=== PATIENT | female | born 1975 | race Caucasian/White ===

== ENCOUNTER 2017-05-31 14:47 | Inpatient (IN) | payer OTHER ==
[~2017-05-31] VITALS: Ht 160 cm; Wt 46.0 kg
[~2017-05-31 14:47] MED LIST: BUTO10SO; OXYC-360 PO; SUMA50
[2017-05-31 14:56] VITALS: BP 148/87; PULSE 112; RESP 20
[2017-05-31] MEDS ORDERED: SODIUM CHLOR 0.9% 1000 ML INJ 1,000 ML IV ONE (14:56)
[2017-05-31 15:11] LABS: AUTOMATED NEUTROPHIL # 5.5 TH/MM3 (1.8-7.7); BASOPHIL % 0.4 % (0.0-2.0); EOSINOPHIL # 0.2 TH/MM3 (0-0.4); HEMATOCRIT 38.7 % (35.0-46.0); HEMO FLAGS DIFF FINAL; LYMPH % 20.1 % (9.0-44.0); LYMPHOCYTE # 1.6 TH/MM3 (1.0-4.8); MEAN CELL VOLUME 85.8 FL (80.0-100.0); MEAN CORPUSCULAR HEMOGLOBIN 28.4 PG (27.0-34.0); MEAN CORPUSCULAR HGB CONC 33.2 % (32.0-36.0); MONO % 8.9 % (0.0-8.0); NEUT % 68.6 % (16.0-70.0); PLATELET COUNT 252 TH/MM3 (150-450); RED BLOOD COUNT 4.51 MIL/MM3 (4.00-5.30); RED CELL DISTRIBUTION WIDTH 13.4 % (11.6-17.2)
--- NOTE | 2017-05-31 15:12 | RADRPT ---
EXAM DATE/TIME: 05/31/2017 14:57 [facility] COMPARISON: No previous studies available for comparison. INDIC ATIONS : A RADIATION DOSE: 60.34 CTDIvol (mGy) This report was called by Dr. Cherry to Dr. Hernandez at 1509 MEDICAL HISTORY : Unable to obtain. SURGICAL HISTORY : Unable to obtain. ENCOUNTER: Initial ACUITY: 1 day PAIN SCALE: 4/10 LOCATION: cranial TECHNIQUE: Multiple contiguous axial images were obtained of the head. Using automated exposure control and adj ustment of the mA and/or kV according to patient size, radiation dose was kept as low as reasonably a chievable to obtain optimal diagnostic quality images. DICOM format image data is available electro nically for review and comparison. FINDINGS: CEREBRUM: The ventricles are normal for age. No evidence of midline shift, mass lesion, hemorrhage or acute in farction. No extra-axial fluid collections are seen. POSTERIOR FOSSA: The cerebellum and brainstem are intact. The 4th ventricle is midline. The cerebellopontine angle i s unremarkable. EXTRACRANIAL: The visualized portion of the orbits is intact. SKULL: The calvaria is intact. No evidence of skull fracture. CONCLUSION: Negative exam. Leroy Cherry MD on May 31, 2017 at 15:06 Board Certified Radiologist. This report was verified electronically.
[2017-05-31 15:22] LABS: CHLORIDE 102 MEQ/L (98-107); POTASSIUM 3.5 MEQ/L (3.5-5.1); SODIUM (NA) 137 MEQ/L (136-145)
[2017-05-31 15:25] LABS: ANION GAP 9 MEQ/L (5-15); BICARBONATE 26.3 MEQ/L (21.0-32.0); BLOOD UREA NITROGEN 13 MG/DL (7-18)
[2017-05-31 15:27] LABS: APTT (PATIENT) 25.7 SEC (24.3-30.1); PROTHROMBIN TIME - PATIENT 11.3 SEC (9.8-11.6)
[2017-05-31 15:28] LABS: GLOMERULAR FILTRATION RATE 83 ML/MIN (>89)
[2017-05-31 15:30] VITALS: BP 141/77; PULSE 89; RESP 20; O2SAT 98
[2017-05-31 15:33] LABS: BETA HCG QUANT LESS THAN 1 MIU/ML (0-5)
[2017-05-31] MEDS ORDERED: IOHEXOL 350 MG/ML 10 ML VIAL (for RAD DIAG) IVCONTRAST ONE (15:38)
--- NOTE | 2017-05-31 15:45 | PD ---
HPI Chief Complaint: Stroke Alert Time Seen by Provider: 14:59 Travel History International Travel<30 days: No Contact w/Intl Traveler<30days: No Traveled to known affect area: No History of Present Illness HPI This is a 42-year-old female who presents to the emergency Department with strokelike symptoms. History was obtained primarily from the patient's and coworkers. The patient reportedly at noon had onset of some flashes in her vision and then started to have some numbness in her right arm. She mentioned it to her coworkers became continue to work. At 2 PM she started to have difficulty with her speech so the office called her and she was brought to the emergency department. Reportedly this happen once 10 years ago. Patient presented to an outside hospital and was told that she had a TIA. She followed up with the subspecialist to suspected her symptoms were related to complex migraine. She was diagnosed with factor V Leiden at that time and started on a blood thinner which she no longer currently takes. PFSH Past Medical History Arthritis: No Blood Disorders: Yes (FACTOR 5 DEFICIENCY) Anxiety: Yes Depression: No Heart Rhythm Problems: Yes (SVT) Cancer: No Cardiovascular Problems: Yes (FACTOR V LEIDEN) High Cholesterol: Yes Chest Pain: Yes Congestive Heart Failure: No Cerebrovascular Accident: Yes Endocrine: No Genitourinary: No Headaches: Yes Hypertension: Yes Immune Disorder: No Musculoskeletal: No Neurologic: Yes Psychiatric: Yes Reproductive: No Respiratory: No Migraines: Yes Myocardial Infarction: No Sickle Cell Disease: No ?: Not : 2 Para: 2 Past Surgical History Abdominal Surgery: No AICD: No Arteriovenous Shunt: No Body Medical Devices: POSITIVE FACTOR 5 Cardiac Surgery: No Ear Surgery: No Endocrine Surgery: No Eye Surgery: No Genitourinary Surgery: No Gynecologic Surgery: Yes (OVARIAN CYST) Insulin Pump: No Joint Replacement: No Oral Surgery: No Pacemaker: No Thoracic Surgery: No Other Surgery: Yes (INGUINAL HERNIA REPAIR) Social History Alcohol Use: Yes (occ) Tobacco Use: No Substance Use: No Allergies-Medications (Allergen,Severity, Reaction): Coded Allergies: No Known Allergies (Verified , 05/31/17) Reported Meds & Prescriptions Reported Meds & Active Scripts Active Review of Systems ROS Limitations: Speech Impaired Physical Exam Narrative GENERAL:Well appearing, no acute distress SKIN: Focused skin assessment warm and dry. HEAD: Atraumatic. Normocephalic. EYES: Pupils equal and round. No injection or drainage. ENT: Moist mucous membranes NECK: Trachea midline. CARDIOVASCULAR: Regular rate and rhythm. No murmur appreciated. RESPIRATORY: Clear to auscultation. Breath sounds equal bilaterally. GASTROINTESTINAL: Abdomen soft, non-tender, nondistended. MUSCULOSKELETAL: No obvious deformities. NEUROLOGICAL: Awake and alert. No obvious cranial nerve deficits. Severe expressive aphasia. Right upper extremity ataxia. Unable to articulate visual almodovar well. NIH stroke scale 5. PSYCHIATRIC: Anxious, tearful Data Data Last Documented VS Vital Signs Date Time Temp Pulse Resp B/P (MAP) Pulse Ox O2 Delivery O2 Flow Rate FiO2 05/31/17 15:44 Room Air 05/31/17 15:42 98 05/31/17 15:30 89 20 Orders Orders Cath For Specimen (05/31/17 14:56) Neuro Checks Q2HX12,Q4H (05/31/17 14:56) Nursing Bedside Swallow Assess .ONCE (05/31/17 14:56) Activity Bed Rest (05/31/17 14:56) Diet Npo (05/31/17 Dinner) Prothrombin Time / Inr (Pt) (05/31/17 14:56) Act Partial Throm Time (Ptt) (05/31/17 14:56) Complete Blood Count With Diff (05/31/17 14:56) Basic Metabolic Panel (Bmp) (05/31/17 14:56) Fibrinogen (05/31/17 14:56) Creatine Kinase (Cpk) (05/31/17 14:56) Troponin I (05/31/17 14:56) Ua Includes Microscopic (05/31/17 14:56) Drug Screen, Random Urine (05/31/17 14:56) Type And Screen (05/31/17 14:56) Ct Brain W/O Iv Contrast(Rout) (05/31/17 ) Electrocardiogram (05/31/17 ) Beta Hcg (Quant/Titer) (05/31/17 14:56) Consult Neurology (05/31/17 14:56) Sodium Chlor 0.9% 1000 Ml Inj (Ns 1000 M (05/31/17 14:56) Blood Glucose (05/31/17 14:56) Ecg Monitoring (05/31/17 14:56) Iv Access Insert/Monitor (05/31/17 14:56) NPO (05/31/17 14:56) Oximetry (05/31/17 14:56) Oxygen Administration (05/31/17 14:56) Resp Oxygen John C Titrat 1-4 L (05/31/17 14:56) (Hub Use Only)Inp Phy Cons/Ref (05/31/17 ) Cta Brain W Iv Contrast W 3d (05/31/17 ) Cta Neck W Iv Contrast W 3d (05/31/17 ) Iohexol 350 Inj (Omnipaque 350 Inj) (05/31/17 15:38) Heparin Infusion LUZ.Q1H (05/31/17 16:18) Heparin-D5w 25,000 U/250 Ml (Heparin-D5w (05/31/17 16:30) Act Partial Throm Time (Ptt) (05/31/17 16:18) Cbc No Diff, Includes Plts (05/31/17 16:18) Cbc No Diff, Includes Plts (06/03/17 06:00) Act Partial Throm Time (Ptt) (05/31/17 23:18) Occult Blood (Hemoccult) Stool (05/31/17 16:18) Aspirin Chew (Aspirin Chew) (05/31/17 16:30) Eeg Study (05/31/17 ) Mri Brain W&W/O Contrast (05/31/17 ) Aspirin (Aspirin) (05/31/17 16:21) Labs Laboratory Tests Test 05/31/17 15:00 White Blood Count 8.0 TH/MM3 Red Blood Count 4.51 MIL/MM3 Hemoglobin 12.8 GM/DL Hematocrit 38.7 % Mean Corpuscular Volume 85.8 FL Mean Corpuscular Hemoglobin 28.4 PG Mean Corpuscular Hemoglobin Concent 33.2 % Red Cell Distribution Width 13.4 % Platelet Count 252 TH/MM3 Mean Platelet Volume 7.3 FL Neutrophils (%) (Auto) 68.6 % Lymphocytes (%) (Auto) 20.1 % Monocytes (%) (Auto) 8.9 % Eosinophils (%) (Auto) 2.0 % Basophils (%) (Auto) 0.4 % Neutrophils # (Auto) 5.5 TH/MM3 Lymphocytes # (Auto) 1.6 TH/MM3 Monocytes # (Auto) 0.7 TH/MM3 Eosinophils # (Auto) 0.2 TH/MM3 Basophils # (Auto) 0.0 TH/MM3 CBC Comment DIFF FINAL Differential Comment Prothrombin Time 11.3 SEC Prothromb Time International Ratio 1.0 RATIO Activated Partial Thromboplast Time 25.7 SEC Fibrinogen 200 mg/dL Blood Urea Nitrogen 13 MG/DL Creatinine 0.77 MG/DL Random Glucose 122 MG/DL Calcium Level 8.9 MG/DL Sodium Level 137 MEQ/L Potassium Level 3.5 MEQ/L Chloride Level 102 MEQ/L Carbon Dioxide Level 26.3 MEQ/L Anion Gap 9 MEQ/L Estimat Glomerular Filtration Rate 83 ML/MIN Total Creatine Kinase 64 U/L Troponin I LESS THAN 0.02 NG/ML Human Chorionic Gonadotropin, Quant LESS THAN 1 MIU/ML MDM Medical Screen Exam Complete: Yes Emergency Medical Condition: Yes Differential Diagnosis Hemorrhagic stroke, ischemic stroke, complex migraine, TIA, seizure, mass Narrative Course This is a 42-year-old female who presents to the emergency department with expressive aphasia. She did have a prodrome of flashes in her vision and some numbness in her arm. She was last normal at noon. Stroke alert was activated when the patient arrived. Patient was transported to CT. Patient was determined to be a TPA candidate. I had a long conversation with the patient and her . We discussed the risks versus benefits of TPA. Given the patient's history of having had these symptoms in the past and they resolve spontaneously on their own and the risk of intracranial hemorrhage the family decided against TPA. We obtained a CTA and Dr. Eric came to evaluate the patient at the bedside. Critical Care Narrative Aggregate critical care time was 40 minutes. Time to perform other separately billable procedures was not included in the critical care time. My time did not include minutes spent treating any other patients simultaneously or on activities that did not directly contribute to the patient's treatment. The services I provided to this patient were to treat and/or prevent clinically significant deterioration that could result in: disability, I provided critical care services requiring my management, as noted below: Chart data review, documentation time, medication orders and management, vital sign assessments/reviewing monitor data, ordering and reviewing lab tests, ordering and interpreting/reviewing x-rays and diagnostic studies, care of the patient and discussion of the patient with the admitting physicians. Stroke Alert NIHSS NIH Stroke Scale Result: 5 NIHSS Time Completed: 14:56 Thrombolytic Contraindications Contraindications: Refusal of Treatment Physician Communication Physician Communication Dr. Eric Diagnosis Diagnosis: Primary Impression: Aphasia Admitting Physician Requests: Admit Marie Hernandez MD May 31, 2017 15:45
[2017-05-31 15:56] LABS: CREATINE KINASE 64 U/L (26-192)
--- NOTE | 2017-05-31 15:58 | RADRPT ---
EXAM DATE/TIME: 05/31/2017 15:18 [facility] COMPARISON: CT BRAIN W/O CONTRAST, May 31, 2017, 14:57. INDICATIONS : Stroke alert. Dysphasia. IV CONTRAST: 75 cc Omnipaque 350 (iohexol) IV ; Cumulative dose for multiple exams. RADIATION DOSE: 42.28 CTDIvol (mGy) ; Combined studies MEDICAL HISTORY : Unable to obtain. SURGICAL HISTORY : Unable to obtain. ENCOUNTER: Initial ACUITY: 1 day PAIN SCALE: 4/10 LOCATION: cranial TECHNIQUE: Volumetric scanning was performed using a multi-row detector CT scanner. The data was post processed with a variety of visualization algorithms including full volume maximum intensity projection, multi -planar sliding thin slab reformation, curved planar reformation, and surface rendering techniques. Using automated exposure control and adjustment of the mA and/or kV according to patient size, radiat ion dose was kept as low as reasonably achievable to obtain optimal diagnostic quality images. DICO M format image data is available electronically for review and comparison. FINDINGS: There is excellent visualization of the major intracranial arteries out to the second-order branch ve ssels. There is no evidence for aneurysm, vessel truncation or stenosis, and no evidence for vascula r malformation. CONCLUSION: 1. Negative examination. Samuel Lovell MD on May 31, 2017 at 15:53 Board Certified Radiologist. This report was verified electronically.
--- NOTE | 2017-05-31 16:08 | RADRPT ---
EXAM DATE/TIME: 05/31/2017 15:18 [facility] COMPARISON: No previous studies available for comparison. INDICATIONS : Stroke alert. Dysphasia. IV CONTRAST: 75 cc Omnipaque 350 (iohexol) IV ; Cumulative dose for multiple exams. RADIATION DOSE: 42.28 CTDIvol (mGy) MEDICAL HISTORY : Unable to obtain. SURGICAL HISTORY : Unable to obtain. ENCOUNTER: Initial ACUITY: 1 day PAIN SCALE: 0/10 LOCATION: neck Elevated flow velocities and ICA/CCA ratios have been found to correlate with increased degrees of vessel stenosis, calculated as percentage of diameter relative to a normal segment of distal ICA/CCA. TECHNIQUE: Volumetric scanning was performed using a multirow detector CT scanner. The data was post processed with a variety of visualization algorithms including full-volume maximum intensity projection, multip lanar sliding thin-slab reformation, curved-planar reformation, and surface-rendering techniques. Us ing automated exposure control and adjustment of the mA and/or kV according to patient size, radiatio n dose was kept as low as reasonably achievable to obtain optimal diagnostic quality images. DICOM f ormat image data is available electronically for review and comparison. FINDINGS: AORTIC ARCH: There is a three-vessel origin of the great vessels from the aorta. No evidence of ostial narrowing. RIGHT CAROTID: The common carotid artery is intact. The carotid bulb has a normal configuration without ulceration o r narrowing. The internal carotid artery lumen is smooth without stenosis. The external carotid malena ry is intact. LEFT CAROTID: The common carotid artery is intact. The carotid bulb has a normal configuration without ulceration or narrowing. There is an ulcerated plaque in the non-ostial proximal internal carotid artery with mu ral thrombus. The external carotid artery is intact. VERTEBRALS: The vertebral arteries have a symmetric diameter. No stenotic lesions are seen. CONCLUSION: 1. Ulcerated plaque in the nonostial proximal left internal carotid artery with mural thrombus. This could serve as a source of emboli to the left intracranial circulation. Degree of associated stenosis is less than 20% by NASCET criteria. 2. Arch and cervical vessels are otherwise patent Leroy Cherry MD on May 31, 2017 at 15:56 Board Certified Radiologist. This report was verified electronically.
[2017-05-31] MEDS ORDERED: ASPIRIN 325 MG TAB ONE (16:21)
[2017-05-31] MEDS ORDERED: HEPARIN-D5W 25,000 U/250 ML 250 ML IV PRN (16:30)
[2017-05-31] MEDS ORDERED: ASPIRIN 81 MG CHEW TAB CHEW ONE (16:30)
[2017-05-31] MEDS ORDERED: SODIUM CHLOR 0.9% 1000 ML INJ 1,000 ML IV SCH (16:34)
[2017-05-31] MEDS ORDERED: DEXTROSE 50% IN WATER 50 ML VIAL(D50) IV PUSH PRN (16:45)
[2017-05-31] MEDS ORDERED: GLUCAGON 1 MG/ML VIAL OTHER PRN (16:45)
[2017-05-31] MEDS ORDERED: SODIUM CHLORIDE 0.9% FLUSH 5 ML FLUSH IV FLUSH PRN (16:45)
[2017-05-31] MEDS ORDERED: ENALAPRILAT 1.25 MG/ML VIAL IV PRN (16:45)
[2017-05-31] MEDS: INSULIN ASPART SUPPLEMENTAL SCALE SQ SCH ×2 (17:00→21:00)
[2017-05-31 17:21] LABS: GLUCOSE,URINE NEG (NEG); KETONE, URINE NEG (NEG); NITRITE,URINE NEG (NEG)
[2017-05-31 17:28] LABS: BLOOD, URINE TRACE (NEG)
[2017-05-31 17:30] VITALS: BP 137/69; PULSE 87; RESP 1; O2SAT 98
[2017-05-31 17:32] LABS: URINE COLOR STRAW (YELLW/STRAW)
[2017-05-31 17:33] LABS: METHOD OF COLLECTION CLEAN CATCH; RBC, URINE 0-3 /hpf (0-3); SQUAMOUS EPITHELIAL CELL URINE 0-5 /hpf (0-5)
[2017-05-31] MEDS ORDERED: ONDANSETRON HCL 4 MG/2 ML VIAL IV PUSH ONE (18:15)
[2017-05-31] MEDS ORDERED: ACETAMINOPHEN 325 MG TAB PO ONE (18:15)
[2017-05-31] MEDS: SODIUM CHLOR 0.9% 1000 ML INJ 1,000 ML IV SCH (18:27)
--- NOTE | 2017-05-31 18:41 | MG ---
cc: TIFFANY FLOWERS MD Lab No: Date: 05/31/17 Age: Sex: F Race: REQUESTED PHYSICIAN Dr. Eric A stat EEG was obtained on this 42-year-old patient being evaluated for a stroke alert, and numbness and tingling right hand, expressive aphasia. MEDICATIONS Atenolol. Amitriptyline. This EEG shows consistent left temporal slower rhythms including attenuation, lack of alpha rhythms and theta. There is even some delta activity. There are some sharp waves. There is artifact and phase reversal on the left temporal. The right posterior rhythms are dominated by alpha activity. There is no significant change with photic stimulation, although some driving response is probably present, left more than right. INTERPRETATION Abnormal EEG because of frequent left temporal slowing with some associated sharp contoured waves and phase reversal. The findings suggest a focal abnormality, could be structural or postictal slowing. No ictal abnormality present. MD SANTOS Rader/ /6:18 PM /6:30 PM
[2017-05-31] MEDS ORDERED: ESCI10TA PO (18:59)
[2017-05-31] MEDS ORDERED: ATEN25TA PO ×2 (18:59)
[2017-05-31] MEDS ORDERED: AMIT10TA6 PO (18:59)
[2017-05-31] MEDS ORDERED: RELP40TA PO (18:59)
[2017-05-31] MEDS ORDERED: HYDROmorphone HCL PF 1 MG/ML VIAL IV PUSH ONE (19:15)
--- NOTE | 2017-05-31 19:47 | RADRPT ---
EXAM DATE/TIME: 05/31/2017 18:47 [facility] COMPARISON: CTA BRAIN W 3D RECON, May 31, 2017, 15:18. CT BRAIN W/O CONTRAST, May 31, 2017, 14:57. INDICATIONS : Stroke. CONTRAST: 10 cc Omniscan (gadodiamide) IV MEDICAL HISTORY : Factor V deficiency. SURGICAL HISTORY : Hernia repair. Lasik eye surgery. Facial. ENCOUNTER: Subsequent ACUITY: 1 day PAIN SCORE: 8/10 LOCATION: cranial TECHNIQUE: Multiplanar, multisequence MRI of the brain was performed both prior to and following the administrat ion of paramagnetic contrast. FINDINGS: CEREBRUM: The ventricles are normal for age. No evidence of midline shift, mass lesion, hemorrhage or acute in farction. No extraaxial fluid collections are seen. The pituitary gland and suprasellar cistern are normal in configuration. WHITE MATTER: No significant signal abnormalities are seen in the white matter. POSTERIOR FOSSA: The cerebellum and brainstem are intact. The 4th ventricle is midline. The cerebellopontine angle is unremarkable. The cerebellar tonsils are normal in position. DIFFUSION IMAGING: No focal areas of restricted diffusion are seen. No evidence of acute infarction. EXTRACRANIAL: The visualized portions of the orbits and paranasal sinuses are unremarkable. POST-CONTRAST: No abnormal areas of parenchymal or dural enhancement. No evidence of blood-brain barrier breakdown. CONCLUSION: Normal MRI of the brain. Toño Hand MD on May 31, 2017 at 19:43 Board Certified Radiologist. This report was verified electronically.
[2017-05-31 20:00] VITALS: BP 132/77; PULSE 78; RESP 16; O2SAT 98
[2017-05-31] MEDS ORDERED: GADODIAMIDE PF 287 MG/ML 10 ML VIAL (for RAD MRI) IVCONTRAST ONE (20:19)
--- NOTE | 2017-05-31 20:25 | RADRPT ---
EXAM DATE/TIME: 05/31/2017 18:47 COMPARISON: No previous studies available for comparison. INDICATIONS : CVA. CONTRAST: 10 cc Omniscan (gadodiamide) IV MEDICAL HISTORY : Factor V deficiency. SURGICAL HISTORY : Hernia repair. Lasik eye surgery. Facial. ENCOUNTER: Subsequent ACUITY: 1 day PAIN SCORE: 8/10 LOCATION: cranial FINDINGS: Dural sinuses and draining veins of the brain are normally developed. No evidence of thrombosis. CONCLUSION: MRV of the brain within normal limits. Toño Hand MD on May 31, 2017 at 20:21 Board Certified Radiologist. This report was verified electronically.
[2017-05-31] MEDS: levETIRAcetam 1000 MG INJ 100 ML IV SCH (21:00)
[2017-05-31] MEDS: SODIUM CHLORIDE 0.9% FLUSH 5 ML FLUSH IV FLUSH SCH (21:00)
[2017-05-31 21:05] VITALS: BP 132/78; PULSE 77; RESP 16; O2SAT 98
[2017-05-31 23:00] VITALS: BP 130/67; PULSE 90; RESP 16; TEMP 98.9; O2SAT 95
[2017-06-01] VITALS (7 sets, daily range): BP systolic 102–111; BP diastolic 56–66; PULSE 72–83; RESP 16–20; TEMP 97.9–98.3; O2SAT 94–100
[2017-06-01] MEDS: diphenhydrAMINE HCL 50 MG/ML VIAL IV PUSH PRN ×2 (03:14→23:23)
[2017-06-01] MEDS: PROCHLORPERAZINE INJ 10 MG/2 ML VIAL IV PUSH PRN ×2 (03:14→23:20)
[2017-06-01] MEDS: SODIUM CHLOR 0.9% 1000 ML INJ 1,000 ML IV SCH ×2 (04:07→20:26)
[2017-06-01 04:37] LABS: APTT (PATIENT) 43.7 SEC (24.3-30.1)
[2017-06-01 04:52] LABS: HDL CHOLESTEROL 73.1 MG/DL (40.0-60.0); LDL CHOLESTEROL 52 MG/DL (0-99)
[2017-06-01] MEDS ORDERED: MIDAZOLAM HCL 2 MG/2 ML VIAL IV ONE (07:53)
[2017-06-01] MEDS ORDERED: LIDOCAINE HCL 1% PF 5 ML AMPULE OTHER ONE (07:53)
[2017-06-01] MEDS ORDERED: ePHEDrine/NS 25 MG/5 ML SYR IV ONE (07:53)
[2017-06-01] MEDS ORDERED: PROPOFOL 200 MG/20 ML AMP IV ONE ×2 (07:53→08:51)
[2017-06-01] MEDS: INSULIN ASPART SUPPLEMENTAL SCALE SQ SCH ×4 (08:00→21:00)
[2017-06-01] MEDS: levETIRAcetam 1000 MG INJ 100 ML IV SCH (08:13)
--- NOTE | 2017-06-01 08:24 | HHI.PR ---
Subjective Remarks sr Objective Vital Signs Date Time Temp Pulse Resp B/P (MAP) Pulse Ox O2 Delivery O2 Flow Rate FiO2 06/01/17 04:30 97.9 79 16 107/57 (74) 95 05/31/17 23:00 98.9 90 16 130/67 (88) 95 05/31/17 21:05 77 16 132/78 (96) 98 Room Air 05/31/17 20:00 98 Room Air 05/31/17 20:00 78 16 132/77 (95) 98 Room Air 05/31/17 17:30 87 1 137/69 (91) 98 Room Air 05/31/17 15:44 Room Air 05/31/17 15:42 98 Room Air 05/31/17 15:30 89 20 141/77 (98) 98 Room Air 05/31/17 14:56 112 20 148/87 (107) I/O 05/31/17 05/31/17 05/31/17 06/01/17 06/01/17 06/01/17 07:00 15:00 23:00 07:00 15:00 23:00 Intake Total 850 ml Balance 850 ml Intake IV Total 850 ml Result Diagram: 05/31/17 1500 05/31/17 1500 Objective Remarks awake nl speech now nl calc name doing well back to nl Assessment and Plan Assessment and Plan imp eeg showed some sharply contoured left temp slowing no spikes mri neg cta negx2 had some cp wed will have cards see for guy and cp this was likely complicated migraine and eeg changes could be due to that vs cpsz? will add topamax and calan for migraines and eventually dc keppra oob the left ica very irregular will have vasc surgery weigh in ? thrombus? Neo Eric MD Jun 01, 2017 08:24
[2017-06-01] MEDS: levETIRAcetam 500 MG TAB PO SCH ×2 (08:49→23:21)
[2017-06-01] MEDS: SODIUM CHLORIDE 0.9% FLUSH 5 ML FLUSH IV FLUSH SCH ×2 (08:49→21:00)
--- NOTE | 2017-06-01 08:58 | HHI.HP ---
[facility] Betsy Carter MD Admission Diagnosis aphasia Diagnoses: Chief Complaint: right arm numbness, vision changes, sheech difficulty Travel History International Travel<30 Days: No Contact w/Intl Traveler <30 Da: No Traveled to Known Affected Are: No History of Present Illness 42-year-old female with PMH of TIA, migraine, Factor V Leyden deficiency, SVT, HLD, HTN, who presented to the emergency Department with strokelike symptoms. The patient reportedly at noon had onset of some flashes in her vision and then started to have some numbness in her right arm at noon yesterday. She mentioned it to her coworkers but continue to work. At 2 PM yesterday she started to have difficulty with her speech so the office called her and she was brought to the emergency department. Reportedly this happen once 10 years ago. Patient presented to an outside hospital and was told that she had a TIA. She followed up with the subspecialist to suspected her symptoms were related to complex migraine. She was diagnosed with factor V Leiden at that time and started on a blood thinner which she no longer currently takes. Stroke alert was activated when the patient arrived. Given patient's history of having had these symptoms in the past and they resolve spontaneously on their own and the risk of intracranial hemorrhage, the family decided against TPA. Neurology consulted. CTA/MRI neg for stroke, EEG poss seizure. Started meds for seizures and migraine. Review of Systems Except as stated in HPI: all other systems reviewed are Neg Past Family Social History Past Medical History TIA, migraine, Factor V Leyden deficiency, SVT, HLD, HTN, Past Surgical History Ovarian cyst Inguinal hernia repair Lasik surgery Reported Medications Reported Meds & Active Scripts Active Reported Relpax (Eletriptan) 40 Mg Tab 40 Mg PO ONCE PRN Escitalopram (Escitalopram Oxalate) 10 Mg Tab 10 Mg PO DAILY Amitriptyline (Amitriptyline HCl) 10 Mg Tab 10 Mg PO HS Atenolol 25 Mg Tab 25 Mg PO DAILY Allergies: Coded Allergies: No Known Allergies (Verified , 05/31/17) Family History Factor V Leided deficiency runs in her fmaily (mothers relatives) Also strokes - her mother relatives Father healthy Social History Occasional EtOH use. No illicit drug use or tobacco use. Physical Exam Vital Signs Vital Signs Date Time Temp Pulse Resp B/P (MAP) Pulse Ox O2 Delivery O2 Flow Rate FiO2 06/01/17 04:30 97.9 79 16 107/57 (74) 95 05/31/17 23:00 98.9 90 16 130/67 (88) 95 05/31/17 21:05 77 16 132/78 (96) 98 Room Air 05/31/17 20:00 98 Room Air 05/31/17 20:00 78 16 132/77 (95) 98 Room Air 05/31/17 17:30 87 1 137/69 (91) 98 Room Air 05/31/17 15:44 Room Air 05/31/17 15:42 98 Room Air 05/31/17 15:30 89 20 141/77 (98) 98 Room Air 05/31/17 14:56 112 20 148/87 (107) Physical Exam GENERAL: This is a well-nourished, well-developed patient, in no apparent distress. SKIN: No rashes, ecchymoses or lesions. Cool and dry. HEAD: Atraumatic. Normocephalic. No temporal or scalp tenderness. EYES: Pupils equal round and reactive. Extraocular motions intact. No scleral icterus. No injection or drainage. ENT: Nose without bleeding, purulent drainage or septal hematoma. Throat without erythema, tonsillar hypertrophy or exudate. Uvula midline. Airway patent. NECK: Trachea midline. No JVD or lymphadenopathy. Supple, nontender, no meningeal signs. CARDIOVASCULAR: Regular rate and rhythm without murmurs, gallops, or rubs. RESPIRATORY: Clear to auscultation. Breath sounds equal bilaterally. No wheezes , rales, or rhonchi. GASTROINTESTINAL: Abdomen soft, non-tender, nondistended. No hepato-splenomegaly , or palpable masses. No guarding. MUSCULOSKELETAL: Extremities without clubbing, cyanosis, or edema. No joint tenderness, effusion, or edema noted. No calf tenderness. Negative Homans sign bilaterally. NEUROLOGICAL: Awake and alert. No obvious cranial nerve deficits. Severe expressive aphasia. Right upper extremity ataxia. Unable to articulate visual almodovar well. NIH stroke scale 5. Laboratory Laboratory Tests Test 05/31/17 15:00 05/31/17 17:00 06/01/17 03:37 White Blood Count 8.0 Red Blood Count 4.51 Hemoglobin 12.8 Hematocrit 38.7 Mean Corpuscular Volume 85.8 Mean Corpuscular Hemoglobin 28.4 Mean Corpuscular Hemoglobin Concent 33.2 Red Cell Distribution Width 13.4 Platelet Count 252 Mean Platelet Volume 7.3 Neutrophils (%) (Auto) 68.6 Lymphocytes (%) (Auto) 20.1 Monocytes (%) (Auto) 8.9 Eosinophils (%) (Auto) 2.0 Basophils (%) (Auto) 0.4 Neutrophils # (Auto) 5.5 Lymphocytes # (Auto) 1.6 Monocytes # (Auto) 0.7 Eosinophils # (Auto) 0.2 Basophils # (Auto) 0.0 CBC Comment DIFF FINAL Differential Comment Erythrocyte Sedimentation Rate 4 Prothrombin Time 11.3 Prothromb Time International Ratio 1.0 Activated Partial Thromboplast Time 25.7 43.7 Fibrinogen 200 Blood Urea Nitrogen 13 Creatinine 0.77 Random Glucose 122 Calcium Level 8.9 Sodium Level 137 Potassium Level 3.5 Chloride Level 102 Carbon Dioxide Level 26.3 Anion Gap 9 Estimat Glomerular Filtration Rate 83 Total Creatine Kinase 64 Troponin I LESS THAN 0.02 Human Chorionic Gonadotropin, Quant LESS THAN 1 Urine Collection Type CLEAN CATCH Urine Color STRAW Urine Turbidity CLEAR Urine pH 7.0 Urine Specific [place] 1.021 Urine Protein NEG Urine Glucose (UA) NEG Urine Ketones NEG Urine Occult Blood TRACE Urine Nitrite NEG Urine Bilirubin NEG Urine Leukocyte Esterase NEG Urine RBC 0-3 Urine Squamous Epithelial Cells 0-5 Urine Collection Time 17:00 Urine Opiates Screen NEG Urine Barbiturates Screen NEG Urine Amphetamines Screen NEG Urine Benzodiazepines Screen NEG Urine Cocaine Screen NEG Urine Cannabinoids Screen NEG Triglycerides Level 67 Cholesterol Level 138 LDL Cholesterol 52 HDL Cholesterol 73.1 Cholesterol/HDL Ratio 1.88 Folate GREATER THAN 20.0 Result Diagram: 05/31/17 1500 05/31/17 1500 Imaging Last Impressions Neck CTA 05/31/17 0000 Signed Impressions: Service Date/Time: May 15:18 - CONCLUSION: 1. Ulcerated plaque in the nonostial proximal left internal carotid artery with mural thrombus. This could serve as a source of emboli to the left intracranial circulation. Degree of associated stenosis is less than 20%% by NASCET criteria. 2. Arch and cervical vessels are otherwise patent Leroy Cherry MD Head/Brain Mag Res Venography 05/31/17 0000 Signed Impressions: Service Date/Time: May 18:47 - CONCLUSION: MRV of the brain within normal limits. Toño Hand MD Head CTA 05/31/17 0000 Signed Impressions: Service Date/Time: May 15:18 - CONCLUSION: 1. Negative examination. Samuel Lovell MD Head CT 05/31/17 0000 Signed Impressions: Service Date/Time: May 14:57 - CONCLUSION: Negative exam. Leroy Cherry MD Brain MRI 05/31/17 0000 Signed Impressions: Service Date/Time: May 18:47 - CONCLUSION: Normal MRI of the brain. Toño Hand MD Caprini VTE Risk Assessment Caprini VTE Risk Assessment: Mod/High Risk (score >= 2) Caprini Risk Assessment Model Point Value = 1 Point Value = 2 Point Value = 3 Point Value = 5 Age 41-60 Minor surgery BMI > 25 kg/m2 Swollen legs Varicose veins or History of unexplained or recurrent spontaneous Oral contraceptives or hormone replacement Sepsis (< 1 month) Serious lung disease, including pneumonia (< 1 month) Abnormal pulmonary function Acute myocardial infarction Congestive heart failure (< 1 month) History of inflammatory bowel disease Medical patient at bed rest Age 61-74 Arthroscopic surgery Major open surgery (> 45 min) Laparoscopic surgery (> 45 min) Malignancy Confined to bed (> 72 hours) Immobilizing plaster cast Central venous access Age >= 75 History of VTE Family history of VTE Factor V Leiden Prothrombin [id number] Lupus anticoagulant Anticardiolipin antibodies Elevated serum homocysteine Heparin-induced thrombocytopenia Other congenital or acquired thrombophilia Stroke (< 1 month) Elective arthroplasty Hip, pelvis, or leg fracture Acute spinal cord injury (< 1 month) Prophylaxis Regimen Total Risk Factor Score Risk Level Prophylaxis Regimen 0-1 Low Early ambulation 2 Moderate Order ONE of the following: *Sequential Compression Device (SCD) *Heparin 5000 units SQ BID 3-4 Higher Order ONE of the following medications: *Heparin 5000 units SQ TID *Enoxaparin/Lovenox 40 mg SQ daily (WT < 150 kg, CrCl > 30 mL/min) *Enoxaparin/Lovenox 30 mg SQ daily (WT < 150 kg, CrCl > 10-29 mL/min) *Enoxaparin/Lovenox 30 mg SQ BID (WT < 150 kg, CrCl > 30 mL/min) AND/OR *Sequential Compression Device (SCD) 5 or more Highest Order ONE of the following medications: *Heparin 5000 units SQ TID (Preferred with Epidurals) *Enoxaparin/Lovenox 40 mg SQ daily (WT < 150 kg, CrCl > 30 mL/min) *Enoxaparin/Lovenox 30 mg SQ daily (WT < 150 kg, CrCl > 10-29 mL/min) *Enoxaparin/Lovenox 30 mg SQ BID (WT < 150 kg, CrCl > 30 mL/min) AND *Sequential Compression Device (SCD) Assessment and Plan Code Status 42-year-old female with PMH of TIA, migraine, Factor V Leyden deficiency, SVT, HLD, HTN, who presented to the emergency Department with strokelike symptoms. The patient reportedly at noon had onset of some flashes in her vision and then started to have some numbness in her right arm at noon yesterday. She mentioned it to her coworkers but continue to work. At 2 PM yesterday she started to have difficulty with her speech so the office called her and she was brought to the emergency department. Reportedly this happen once 10 years ago. Patient presented to an outside hospital and was told that she had a TIA. She followed up with the subspecialist to suspected her symptoms were related to complex migraine. She was diagnosed with factor V Leiden at that time and started on a blood thinner which she no longer currently takes. Stroke alert was activated when the patient arrived. Given patient's history of having had these symptoms in the past and they resolve spontaneously on their own and the risk of intracranial hemorrhage, the family decided against TPA. Neurology consulted. CTA/MRI neg for stroke, EEG poss seizure. Started meds for seizures and migraine. Expressive aphasia r/o CVA/TIA Seizure Complex Migraine Stroke alert was called given prior similar h/o and also h/o Factor V Leiden deficiency family decided against TPA administration CT neg CTA/ MRI brain reviewed and neg. Left ICA very irregular, vasc surgery consulted EEG showed some sharply contoured left temp slowing, no spikes Consult cardiology for COMFORT and further eval Seen by neurology Dr Eric appreciate recommendations Started on heparin drip Continue ASA and statin IVF Added Topamax and Calan for migraines and eventually. Continue kepra 500 mg po bid Neuro checks Seizure precautions Monitor on telemetry Keep normoglycemic, normotensive Chronic medical problems appears stable at this time. Continue home meds. DVT ppx scd/teds Physician Certification 2 Midnight Certification Type: Admission for Inpatient Services Order for Inpatient Services The services are ordered in accordance with Medicare regulations or non- Medicare payer requirements, as applicable. In the case of services not specified as inpatient-only, they are appropriately provided as inpatient services in accordance with the 2-midnight benchmark. Estimated LOS (days): 3 days is the estimated time the patient will need to remain in the hospital, assuming treatment plan goals are met and no additional complications. Post-Hospital Plan: Home Heather De Dios MD Jun 01, 2017 08:58
[2017-06-01] MEDS ORDERED: ASPIRIN 81 MG CHEW TAB PO SCH (09:00)
[2017-06-01] MEDS: ASPIRIN EC 325 MG TABEC PO SCH (10:51)
[2017-06-01 10:59] LABS: APTT (PATIENT) 47.5 SEC (24.3-30.1)
--- NOTE | 2017-06-01 15:35 | PD.CONS ---
Assessment and Plan Assessment Consult received per stroke order set. EMR reviewed. MRI negative for acute stroke. Neurology consult reviewed and indicates likely complicated migraine Consult deferred due to no acute stroke. Please reconsult as appropriate. Thank you. Eliza Franks MD Jun 01, 2017 15:35
--- NOTE | 2017-06-01 15:44 | PD.VS.PN ---
Objective Vitals/I&O Date Time Temp Pulse Resp B/P (MAP) Pulse Ox O2 Delivery O2 Flow Rate FiO2 06/01/17 11:30 98.3 81 18 102/56 (71) 99 06/01/17 10:15 94 21 06/01/17 08:30 72 06/01/17 08:00 98.3 80 18 107/65 (79) 100 06/01/17 04:30 97.9 79 16 107/57 (74) 95 05/31/17 23:00 98.9 90 16 130/67 (88) 95 05/31/17 21:05 77 16 132/78 (96) 98 Room Air 05/31/17 20:00 98 Room Air 05/31/17 20:00 78 16 132/77 (95) 98 Room Air 05/31/17 17:30 87 1 137/69 (91) 98 Room Air 06/01/17 06/01/17 06/01/17 07:00 15:00 23:00 Intake Total 100 ml Balance 100 ml Laboratory Laboratory Tests Test 05/31/17 17:00 06/01/17 03:37 06/01/17 09:45 Urine Collection Type CLEAN CATCH Urine Color STRAW Urine Turbidity CLEAR Urine pH 7.0 Urine Specific [place] 1.021 Urine Protein NEG Urine Glucose (UA) NEG Urine Ketones NEG Urine Occult Blood TRACE Urine Nitrite NEG Urine Bilirubin NEG Urine Leukocyte Esterase NEG Urine RBC 0-3 Urine Squamous Epithelial Cells 0-5 Urine Collection Time 17:00 Urine Opiates Screen NEG Urine Barbiturates Screen NEG Urine Amphetamines Screen NEG Urine Benzodiazepines Screen NEG Urine Cocaine Screen NEG Urine Cannabinoids Screen NEG Activated Partial Thromboplast Time 43.7 47.5 Triglycerides Level 67 Cholesterol Level 138 LDL Cholesterol 52 HDL Cholesterol 73.1 Cholesterol/HDL Ratio 1.88 Folate GREATER THAN 20.0 Imaging Last 48 hours Impressions Neck CTA 05/31/17 0000 Signed Impressions: Service Date/Time: May 15:18 - CONCLUSION: 1. Ulcerated plaque in the nonostial proximal left internal carotid artery with mural thrombus. This could serve as a source of emboli to the left intracranial circulation. Degree of associated stenosis is less than 20%% by NASCET criteria. 2. Arch and cervical vessels are otherwise patent Leroy Cherry MD Head/Brain Mag Res Venography 9/21/17 0000 Signed Impressions: Service Date/Time: May 18:47 - CONCLUSION: MRV of the brain within normal limits. Toño Hand MD Head CTA 05/31/17 Signed Impressions: Service Date/Time: May 15:18 - CONCLUSION: 1. Negative examination. Samuel Lovell MD Head CT 05/31/17 Signed Impressions: Service Date/Time: May 14:57 - CONCLUSION: Negative exam. Leroy Cherry MD Brain MRI 05/31/17 Signed Impressions: Service Date/Time: May 18:47 - CONCLUSION: Normal MRI of the brain. Toño Hand MD Assessment and Plan Plan Patient undergoing COMFORT at this point. Will follow up with full consultation in AM. Toñito Moses DO Jun 01, 2017 15:44
--- NOTE | 2017-06-01 16:52 | EKG ---
Date Performed: 05/31/2017 Time Performed: 15:49:57 PTAGE: 42 years EKG: Sinus rhythm NORMAL ECG Since PREVIOUS TRACING , no significant change noted PREVIOUS TRACIN09/13/2006 03.48 DOCTOR: Kelsea Noyola Interpretating Date/Time 06/01/2017 16:49:51
--- NOTE | 2017-06-01 17:47 | MB ---
cc: BRAYDON AVILA DO DATE OF CONSULTATION 06/01/17 REASON FOR CONSULTATION Consideration of COMFORT HISTORY OF PRESENT ILLNESS Petrona Price is a pleasant 42-year-old female who originally presented to [facility] emergency room on May 31, 2017 due to numbness in her right arm as well as flashing in her vision. She states that on May 30, 2017 she had some mild pressure. When asked about this pressure, she said it was in the epigastric region. Nothing seemed to make it better or worse. She can point to the area with one to two fingers and is a relatively small area. She said this pressure which was 1-2/10 went away on its own. Then on May 31 she had difficulty with her speech. She also was noticing right arm numbness. She was brought to the emergency room and, due to her symptoms, TPA was considered. Family decided against TPA. Apparently, the patient had a similar type episode ten years ago and there was a concern for a transient ischemic attack, but it sounds like she was diagnosed with a complex migraine. In seeing her, she is currently hemodynamically stable with no neurological compromise. PAST MEDICAL HISTORY 1. Questionable TIA. 2. Multiple migraines 3. Factor V Leiden deficiency 4. SVT per the patient which she believes was sinus tachycardia. 5. Hyperlipidemia. 6. Hypertension. PAST SURGICAL HISTORY 1. Ovarian cyst 2. Inguinal hernia repair 3. LASIK surgery. ALLERGIES NO KNOWN DRUG ALLERGIES. MEDICATIONS 1. Atenolol 25 mg daily 2. Amitriptyline 10 mg every night 3. Escitalopram 10 mg daily 4. Relpax 40 mg as needed for a migraine headache. FAMILY HISTORY Factor V Leiden deficiency runs in her family. SOCIAL HISTORY The patient occasionally uses alcohol. Denies tobacco or drug abuse. REVIEW OF SYSTEMS 14-systems were reviewed including osteopathic. Pertinent positives and negatives above otherwise negative. PHYSICAL EXAMINATION VITAL SIGNS: Temperature 98.3, heart rate 81, blood pressure 102/56, respirations 18, pulse ox 99% on room air. GENERAL: The patient appears well in no acute distress, alert awake and oriented x3. HEENT: Extraocular muscles intact. Mucous membranes moist. NECK: Supple. No JVD at 45 degrees. No carotid bruits heard bilaterally. Carotid upstroke is brisk in nature. HEART: Regular rate and rhythm. Positive first and second heart sounds with no murmurs, gallops or rubs. LUNGS: Clear to auscultation bilaterally. No wheezes, rales or rhonchi. ABDOMEN: Soft, nontender, nondistended, organomegaly noted. EXTREMITIES: No clubbing, cyanosis or edema. Femoral and distal pulses intact bilaterally. NEUROLOGIC: No focal deficits. SKIN: Warm, dry and intact. OSTEOPATHIC: No kyphoscoliosis, lordosis or paraspinal tender points. LABORATORY FINDINGS Hemoglobin 12.8, hematocrit 38.7, platelets 252. Potassium 3.5, BUN 13, creatinine 0.77, troponin less than 0.02, total cholesterol 138, LDL 52, HDL 73.1, triglycerides 67. CARDIOLOGY STUDIES Electrocardiogram (May 31, 2017 at 15:49) sinus rhythm, no acute ST-T wave changes. IMPRESSION 1. Neurological symptoms possibly due to complex migraine. 2. Atypical chest pain. 3. History of migraines 4. History of SVT for which the patient believes this was sinus tachycardia. 5. CTA of the neck showing ulcerated plaque in the left internal carotid artery. RECOMMENDATIONS 1. Ms. Price' event is believed to be due to a complex migraine per neurology, but they are still asking for a possible COMFORT as she does have a migraine history to rule out a possible PFO. 2. Risks, benefits and alternatives were explained to her and her and she consents as such. 3. As far as her SVT goes, we may request for a Holter monitor outpatient to further differentiate if she has any other arrhythmia. Consideration could be made for an event monitor or even a loop recorder due to her. 4. She does have a possible ulcerated plaque of the left internal carotid artery. Vascular surgery has been asked to see her for further recommendations. 5. As far as her chest pain goes, this is very atypical. I have left my card for her to follow up with me as an outpatient for consideration of stress testing to rule out underlying coronary artery disease. Thank you for allowing me to see Petrona Price. If there are any questions, please do not hesitate to call. Braydon Avila DO VGP/ /2:46 PM /5:06 PM
--- NOTE | 2017-06-01 18:33 | ECHRPT ---
Indication: tia CONCLUSIONS The left ventricular systolic function is normal with an estimated ejection fraction in the range of 55-60%. A patent foramen ovale is present with a [id number] shunt demonstrated by color flow Doppler interrogation. Right to left atrial level shunt is observed with agitated saline contrast administration, with pres sure applied to the abdomen to simulate a Valsalva Maneuver. Trace mitral valve regurgitation. BP: / HR: Rhythm: Sinus Technical Quality:Good Medications Complications None Proc. Components Anesthesia at bedside for sedation FINDINGS LEFT VENTRICLE Normal left ventricular size. Wall thickness is normal. The left ventricular systolic function is normal with an estimated ejection fraction in the range of 55-60%. No regional wall motion abnormalities are present. RIGHT VENTRICLE Normal right ventricular size and systolic function. LEFT ATRIUM The left atrial size is normal. RIGHT ATRIUM The right atrial size is normal. ATRIAL APPENDAGES Normal left atrial appendage size with no evidence of thrombus formation. The velocities in the left atrial appendage are normal. ATRIAL SEPTUM A patent foramen ovale is present with a [id number] shunt demonstrated by color flow Doppler interrogation. Right to left atrial level shunt is observed with agitated saline contrast administration, with pres sure applied to the abdomen to simulate a Valsalva Maneuver AORTA The aortic root and proximal ascending aorta are not well visualized. MITRAL VALVE Structurally normal mitral valve. Trace mitral valve regurgitation. No mitral valve stenosis. AORTIC VALVE Trileaflet aortic valve. No aortic valve regurgitation. No aortic valve stenosis. TRICUSPID VALVE Structurally normal tricuspid valve. No tricuspid valve stenosis or regurgitation. VESSELS The pulmonary valve is not well visualized. Braydon Cabrera DO (Electronically Signed) Final Date:01 June 2017 18:32
[2017-06-01 20:24] LABS: HEMOGLOBIN A1a 1.4 %; HEMOGLOBIN A1b 1.4 %; HEMOGLOBIN LA1C 1.9 %; HEMOGLOBIN P3 3.4 %
[2017-06-01 20:25] LABS: HEMOGLOBIN Ao 86.1 %
[2017-06-01] MEDS: TOPIRAMATE 25 MG TAB PO SCH (23:22)
[2017-06-01] MEDS: VERAPAMIL HCL 120 MG SUSTAINED RELEASE TAB PO SCH (23:22)
[2017-06-02 01:01] VITALS: BP 98/57; PULSE 87; RESP 20; TEMP 98.2; O2SAT 97
[2017-06-02 05:19] VITALS: BP 109/57; PULSE 80; RESP 20; TEMP 97.8; O2SAT 98
[2017-06-02 08:00] VITALS: BP 91/50; PULSE 84; RESP 17; TEMP 98.2; O2SAT 99
[2017-06-02] MEDS: INSULIN ASPART SUPPLEMENTAL SCALE SQ SCH ×4 (08:00→21:00)
[2017-06-02] MEDS: SODIUM CHLORIDE 0.9% FLUSH 5 ML FLUSH IV FLUSH SCH ×2 (08:03→21:00)
[2017-06-02] MEDS: SODIUM CHLOR 0.9% 1000 ML INJ 1,000 ML IV SCH ×2 (08:03→21:12)
[2017-06-02] MEDS: levETIRAcetam 500 MG TAB PO SCH ×2 (08:04→21:11)
[2017-06-02] MEDS: ASPIRIN EC 325 MG TABEC PO SCH (08:04)
[2017-06-02 08:52] LABS: APTT (PATIENT) 30.1 SEC (24.3-30.1)
[2017-06-02 09:40] VITALS: O2SAT 99
[2017-06-02 12:00] VITALS: BP 96/53; PULSE 94; RESP 18; TEMP 98.5; O2SAT 94
--- NOTE | 2017-06-02 13:46 | PD.CARD.PN ---
Subjective Subjective Remarks No events overnight No chest pain/SOB Objective Medications Current Medications Medications (Trade) Dose Ordered Sig/Rosalino Route Start Time Stop Time Status Last Admin Heparin Sodium/ Dextrose 250 ml @ 6.54 mls/hr TITRATE PRN IV 05/31/17 16:30 05/31/17 16:31 (NS Flush) 2 ml BID IV FLUSH 05/31/17 21:00 06/02/17 08:03 (NS Flush) 2 ml UNSCH PRN IV FLUSH 05/31/17 16:45 (Vasotec Inj) 1.25 mg Q4H PRN IV 05/31/17 16:45 (NovoLOG SUPPLEMENTAL SCALE) 1 ACHS SQ 05/31/17 17:00 (D50w (Vial) Inj) 50 ml UNSCH PRN IV PUSH 05/31/17 16:45 (Glucagon Inj) 1 mg UNSCH PRN OTHER 05/31/17 16:45 Sodium Chloride 1,000 ml @ 75 mls/hr [id number] IV 05/31/17 17:46 06/02/17 08:03 (Ecotrin Ec) 325 mg DAILY PO 06/01/17 09:00 06/02/17 08:04 (Benadryl Inj) 25 mg Q4H PRN IV PUSH 05/31/17 19:15 06/01/17 23:23 (Compazine Inj) 10 mg Q4H PRN IV PUSH 05/31/17 19:15 06/01/17 23:20 (Isoptin Sr) 120 mg DAILY@2000 PO 06/01/17 20:00 06/01/17 23:22 (Keppra) 500 mg Q12HR PO 06/01/17 09:00 06/02/17 08:04 (Topamax) 25 mg DAILY@2100 PO 06/01/17 21:00 06/01/17 23:22 Vital Signs / I&O Vital Signs Date Time Temp Pulse Resp B/P (MAP) Pulse Ox O2 Delivery O2 Flow Rate FiO2 06/02/17 09:40 99 21 06/02/17 08:00 98.2 84 17 91/50 (64) 99 06/02/17 05:19 97.8 80 20 109/57 (74) 98 06/02/17 01:01 98.2 87 20 98/57 (71) 97 06/01/17 21:00 98.1 82 20 111/66 (81) 100 06/01/17 16:00 98.3 83 18 110/66 (81) 100 I/O 06/01/17 06/01/17 06/01/17 06/02/17 06/02/17 06/02/17 07:00 15:00 23:00 07:00 15:00 23:00 Intake Total 100 ml 1640 ml Balance 100 ml 1640 ml Intake IV Total 100 ml 1640 ml # Voids 2 # Bowel Movements 1 Physical Exam GENERAL: NAD, AAOx3 SKIN: Warm and dry. HEAD: Atraumatic. Normocephalic. EYES: Pupils equal and round. No scleral icterus. No injection or drainage. ENT: No nasal bleeding or discharge. Mucous membranes pink and moist. NECK: Trachea midline. No JVD. CARDIOVASCULAR: Regular rate and rhythm. RESPIRATORY: No accessory muscle use. Clear to auscultation. Breath sounds equal bilaterally. GASTROINTESTINAL: Abdomen soft, non-tender, nondistended. Hepatic and splenic margins not palpable. MUSCULOSKELETAL: Extremities without clubbing, cyanosis, or edema. No obvious deformities. NEUROLOGICAL: Awake and alert. No obvious cranial nerve deficits. Motor grossly within normal limits. Five out of 5 muscle strength in the arms and legs. Normal speech. PSYCHIATRIC: Appropriate mood and affect; insight and judgment normal. Laboratory Laboratory Tests Test 06/02/17 07:57 Activated Partial Thromboplast Time 30.1 SEC Assessment and Plan Problem List: (1) Migraine ICD Codes: G43.909 - Migraine, unspecified, not intractable, without status migrainosus (2) PFO (patent foramen ovale) ICD Codes: Q21.1 - Atrial septal defect (3) Chest pain ICD Codes: R07.9 - Chest pain, unspecified Assessment and Plan 1) Concern for neurologic issues, felt to be migraine per neurology 2) PFO on COMFORT ASA 81mg daily Discussed with patient and neurology, limited data on closing PFO for migraines Most anecdotal benefit with patients with PFO and atrial septal aneurysm, which she does not have Will further research and have her follow up in the office for consideration 3) Chest pain very atypical, somewhat epigastric Will follow up for consideration of stress testing 4) Carotid ulcerative plaque with possible thrombus Vascular surgery to see the patient Braydon Cabrera DO Jun 02, 2017 13:46
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
--- NOTE | 2017-06-02 14:32 | HHI.PR ---
Subjective Remarks Follow-up TIA? Migraine 06/02/17-patient seen and examined and continued to have migraine headaches. Patient reports improvement of slurred speech. Case discussed with patient's and mother had a bedside. Case was discussed with vascular surgery Objective Vitals Vital Signs Date Time Temp Pulse Resp B/P (MAP) Pulse Ox O2 Delivery O2 Flow Rate FiO2 06/02/17 12:00 98.5 94 18 96/53 (67) 94 06/02/17 09:40 99 21 06/02/17 08:00 98.2 84 17 91/50 (64) 99 06/02/17 05:19 97.8 80 20 109/57 (74) 98 06/02/17 01:01 98.2 87 20 98/57 (71) 97 06/01/17 21:00 98.1 82 20 111/66 (81) 100 06/01/17 16:00 98.3 83 18 110/66 (81) 100 I/O 06/01/17 06/01/17 06/01/17 06/02/17 06/02/17 06/02/17 07:00 15:00 23:00 07:00 15:00 23:00 Intake Total 100 ml 1640 ml Balance 100 ml 1640 ml Intake IV Total 100 ml 1640 ml # Voids 2 # Bowel Movements 1 Result Diagram: 05/31/17 1500 05/31/17 1500 Imaging Last Impressions Neck CTA 05/31/17 0000 Signed Impressions: Service Date/Time: May 15:18 - CONCLUSION: 1. Ulcerated plaque in the nonostial proximal left internal carotid artery with mural thrombus. This could serve as a source of emboli to the left intracranial circulation. Degree of associated stenosis is less than 20%% by NASCET criteria. 2. Arch and cervical vessels are otherwise patent Leroy Cherry MD Head/Brain Mag Res Venography 05/31/17 0000 Signed Impressions: Service Date/Time: May 18:47 - CONCLUSION: MRV of the brain within normal limits. Toño Hand MD Head CTA 05/31/17 0000 Signed Impressions: Service Date/Time: May 15:18 - CONCLUSION: 1. Negative examination. Samuel Lovell MD Head CT 05/31/17 0000 Signed Impressions: Service Date/Time: May 14:57 - CONCLUSION: Negative exam. Leroy Cherry MD Brain MRI 05/31/17 0000 Signed Impressions: Service Date/Time: May 18:47 - CONCLUSION: Normal MRI of the brain. Toño Hand MD Objective Remarks GENERAL: NAD SKIN: Warm and dry. HEAD: Normocephalic. EYES: No scleral icterus. No injection or drainage. NECK: Supple, trachea midline. No JVD or lymphadenopathy. CARDIOVASCULAR: Regular rate and rhythm without murmurs, gallops, or rubs. RESPIRATORY: Breath sounds equal bilaterally. No accessory muscle use. GASTROINTESTINAL: Abdomen soft, non-tender, nondistended. MUSCULOSKELETAL: No cyanosis, or edema. BACK: Nontender without obvious deformity. No CVA tenderness. A/P Problem List: (1) Migraine ICD Code: G43.909 - Migraine, unspecified, not intractable, without status migrainosus (2) PFO (patent foramen ovale) ICD Code: Q21.1 - Atrial septal defect (3) Chest pain ICD Code: R07.9 - Chest pain, unspecified Assessment and Plan 42-year-old female with Expressive aphasia CVA/TIA ruled out [place] to be secondary to migraine Patient with history of factor V Leiden deficiency MRA pending Continue with heparin drip, aspirin Seizure? Currently on Keppra Appreciate input from neurology Migraine headache On Topamax PFO on COMFORT ASA 81mg daily Appreciate input from cardiology Chest pain very atypical-resolved Will follow up for consideration of stress testing Carotid ulcerative plaque with possible thrombus Vascular surgery input appreciated Brain MRA pending Charles Woodard MD Jun 02, 2017 14:32
[2017-06-02] MEDS ORDERED: GADODIAMIDE PF 287 MG/ML 20 ML VIAL (for RAD MRI) IVCONTRAST ONE (14:55)
--- NOTE | 2017-06-02 15:28 | RADRPT ---
EXAM DATE/TIME: 06/02/2017 14:32 This report includes an Addendum and supersedes previous reports for this exam. [facility] COMPARISON: CTA CAROTID ARTERIES W 3D RECON, May 31, 2017, 15:18. INDICATIONS : Dizziness. Recent dysphasia. Abnormal CTA of the carotid arteries demonstrating ulcerative plaque lef t proximal internal carotid artery with mild thrombus and less than 20% stenosis. CONTRAST: 20 cc Omniscan (gadodiamide) IV MEDICAL HISTORY : CVA, Factor 5 SURGICAL HISTORY : Hernia. ENCOUNTER: Initial ACUITY: 1 day PAIN SCORE: 0/10 LOCATION: neck Percent stenosis is calculated using the diameter of the stenotic region over the diameter of the nor mal distal internal carotid artery. TECHNIQUE: Bolus infused MRA of the extracranial circulation was performed using a neurovascular coil. Post pro cessing was performed including rotating subvolume maximum intensity projections of each carotid malena ry, rotating full volume maximum intensity projections of both carotid arteries, sagittal and coronal sliding thin slab reformations of each carotid artery, and left oblique sliding thin slab reformatio n through the aortic arch to include the origin of the arch branch vessels. FINDINGS: AORTIC ARCH: There is a three vessel origin of the great vessels from the aorta. No evidence of ostial narrowing. RIGHT CAROTID: The common carotid artery is intact. The carotid bulb has a normal configuration without ulceration or narrowing. The internal carotid artery lumen is smooth without stenosis. The external carotid ar annabelle is intact. LEFT CAROTID: The common carotid artery is intact. The carotid bulb has a normal configuration without ulceration or narrowing. The internal carotid artery is patent. There is irregular narrowing and plaque along t he non-ostial proximal internal carotid artery with less than 50% diameter stenosis. The external car otid artery is intact. VERTEBRALS: The vertebral arteries have a symmetric diameter. No stenotic lesions are seen. CONCLUSION: Irregular ulcerative plaquing again noted in the non-ostial proximal left internal ca rotid artery with less than 50% diameter stenosis. There was less than 20% stenosis by CT. Elbert Escudero MD on June 02, 2017 at 15:23 Board Certified Radiologist. This report was verified electronically. ADDENDUM: In reviewing the MR angiogram and CT angiogram of the carotid arteries the finding could represent a small focal intimal dissection. Elbert Escudero MD on June 04, 2017 at 15:43 Board Certified Radiologist. This report was verified electronically.
[2017-06-02 19:43] LABS: APTT (PATIENT) 51.9 SEC (24.3-30.1)
[2017-06-02 20:00] VITALS: BP 110/59; PULSE 87; RESP 18; TEMP 98.5; O2SAT 100
[2017-06-02] MEDS: VERAPAMIL HCL 120 MG SUSTAINED RELEASE TAB PO SCH (21:11)
[2017-06-02] MEDS: TOPIRAMATE 25 MG TAB PO SCH (21:11)
[2017-06-02] MEDS: diphenhydrAMINE HCL 50 MG/ML VIAL IV PUSH PRN (22:22)
[2017-06-02] MEDS: PROCHLORPERAZINE INJ 10 MG/2 ML VIAL IV PUSH PRN (22:22)
[2017-06-03] VITALS (7 sets, daily range): BP systolic 91–135; BP diastolic 50–76; PULSE 64–90; RESP 16–18; TEMP 96.7–98.9; O2SAT 98–100
[2017-06-03 01:07] LABS: APTT (PATIENT) 56.1 SEC (24.3-30.1)
[2017-06-03] MEDS: INSULIN ASPART SUPPLEMENTAL SCALE SQ SCH ×4 (07:58→21:00)
[2017-06-03] MEDS: SODIUM CHLORIDE 0.9% FLUSH 5 ML FLUSH IV FLUSH SCH ×2 (09:00→21:00)
[2017-06-03] MEDS: ASPIRIN EC 325 MG TABEC PO SCH (09:12)
[2017-06-03] MEDS: levETIRAcetam 500 MG TAB PO SCH ×2 (09:12→23:13)
--- NOTE | 2017-06-03 10:11 | PD.CARD.PN ---
Subjective Subjective Remarks No events overnight No chest pain/SOB/neurologic issues Objective Medications Current Medications Medications (Trade) Dose Ordered Sig/Rosalino Route Start Time Stop Time Status Last Admin Heparin Sodium/ Dextrose 250 ml @ 6.54 mls/hr TITRATE PRN IV 05/31/17 16:30 05/31/17 16:31 (NS Flush) 2 ml BID IV FLUSH 05/31/17 21:00 06/03/17 09:00 (NS Flush) 2 ml UNSCH PRN IV FLUSH 05/31/17 16:45 (Vasotec Inj) 1.25 mg Q4H PRN IV 05/31/17 16:45 (NovoLOG SUPPLEMENTAL SCALE) 1 ACHS SQ 05/31/17 17:00 (D50w (Vial) Inj) 50 ml UNSCH PRN IV PUSH 05/31/17 16:45 (Glucagon Inj) 1 mg UNSCH PRN OTHER 05/31/17 16:45 Sodium Chloride 1,000 ml @ 75 mls/hr [id number] IV 05/31/17 17:46 06/02/17 08:03 (Ecotrin Ec) 325 mg DAILY PO 06/01/17 09:00 06/03/17 09:12 (Benadryl Inj) 25 mg Q4H PRN IV PUSH 05/31/17 19:15 06/02/17 22:22 (Compazine Inj) 10 mg Q4H PRN IV PUSH 05/31/17 19:15 06/02/17 22:22 (Isoptin Sr) 120 mg DAILY@2000 PO 06/01/17 20:00 06/02/17 21:11 (Keppra) 500 mg Q12HR PO 06/01/17 09:00 06/03/17 09:12 (Topamax) 25 mg DAILY@2100 PO 06/01/17 21:00 06/02/17 21:11 Vital Signs / I&O Vital Signs Date Time Temp Pulse Resp B/P (MAP) Pulse Ox O2 Delivery O2 Flow Rate FiO2 06/03/17 08:00 97.7 76 18 98/56 (70) 100 06/03/17 04:00 98.5 64 17 110/65 (80) 100 06/03/17 03:56 90 06/03/17 00:00 98.9 68 17 115/64 (81) 99 06/02/17 20:00 98.5 87 18 110/59 (76) 100 06/02/17 12:00 98.5 94 18 96/53 (67) 94 I/O 06/02/17 06/02/17 06/02/17 06/03/17 06/03/17 06/03/17 07:00 15:00 23:00 07:00 15:00 23:00 Intake Total 800 ml 1200 ml Balance 800 ml 1200 ml Intake Oral 800 ml 1200 ml # Voids 2 1 3 # Bowel Movements 1 0 0 Physical Exam GENERAL: NAD, AAOx3 SKIN: Warm and dry. HEAD: Atraumatic. Normocephalic. EYES: Pupils equal and round. No scleral icterus. No injection or drainage. ENT: No nasal bleeding or discharge. Mucous membranes pink and moist. NECK: Trachea midline. No JVD. CARDIOVASCULAR: Regular rate and rhythm. RESPIRATORY: No accessory muscle use. Clear to auscultation. Breath sounds equal bilaterally. GASTROINTESTINAL: Abdomen soft, non-tender, nondistended. Hepatic and splenic margins not palpable. MUSCULOSKELETAL: Extremities without clubbing, cyanosis, or edema. No obvious deformities. NEUROLOGICAL: Awake and alert. No obvious cranial nerve deficits. Motor grossly within normal limits. Five out of 5 muscle strength in the arms and legs. Normal speech. PSYCHIATRIC: Appropriate mood and affect; insight and judgment normal. Laboratory Laboratory Tests Test 06/02/17 16:53 06/03/17 00:23 Activated Partial Thromboplast Time 51.9 SEC 56.1 SEC Assessment and Plan Problem List: (1) Migraine ICD Codes: G43.909 - Migraine, unspecified, not intractable, without status migrainosus (2) PFO (patent foramen ovale) ICD Codes: Q21.1 - Atrial septal defect (3) Chest pain ICD Codes: R07.9 - Chest pain, unspecified Assessment and Plan 1) Concern for neurologic issues, felt to be migraine per neurology 2) PFO on COMFORT ASA daily, can be changed to 81mg on discharge Discussed with patient and neurology, limited data on closing PFO for migraines Most anecdotal benefit with patients with PFO and atrial septal aneurysm, which she does not have Although does have Factor V Leiden Will plan on continuing ASA 81mg daily for PFO and see how she does before consideration of closing 3) Chest pain very atypical, somewhat epigastric Will follow up for consideration of stress testing 4) Carotid ulcerative plaque with possible thrombus MRI done, await vascular surgery/neuro recommendations Braydon Cabrera DO Jun 03, 2017 10:11
--- NOTE | 2017-06-03 10:41 | HHI.PR ---
Subjective Remarks Follow-up TIA? Migraine 06/02/17-patient seen and examined and continued to have migraine headaches. Patient reports improvement of slurred speech. Case discussed with patient's and mother had a bedside. Case was discussed with vascular surgery 06/03/17-patient seen and examined, denies any headache this morning. Reportedly that overnight she had difficulty with worlds finding which was witnessed by her however resolved this morning Objective Vitals Vital Signs Date Time Temp Pulse Resp B/P (MAP) Pulse Ox O2 Delivery O2 Flow Rate FiO2 06/03/17 08:00 97.7 76 18 98/56 (70) 100 06/03/17 04:00 98.5 64 17 110/65 (80) 100 06/03/17 03:56 90 06/03/17 00:00 98.9 68 17 115/64 (81) 99 06/02/17 20:00 98.5 87 18 110/59 (76) 100 06/02/17 12:00 98.5 94 18 96/53 (67) 94 I/O 06/02/17 06/02/17 06/02/17 06/03/17 06/03/17 06/03/17 07:00 15:00 23:00 07:00 15:00 23:00 Intake Total 800 ml 1200 ml Balance 800 ml 1200 ml Intake Oral 800 ml 1200 ml # Voids 2 1 3 # Bowel Movements 1 0 0 Result Diagram: 05/31/17 1500 05/31/17 1500 Imaging Last Impressions Neck Magnetic Resonance Angiography 06/02/17 0000 Signed Impressions: Service Date/Time: Friday, June 02, 2017 14:32 - CONCLUSION: Irregular ulcerative plaquing again noted in the non-ostial proximal left internal carotid artery with less than 50%% diameter stenosis. There was less than 20%% stenosis by CT. Elbert Escudero MD Neck CTA 05/31/17 0000 Signed Impressions: Service Date/Time: May 15:18 - CONCLUSION: 1. Ulcerated plaque in the nonostial proximal left internal carotid artery with mural thrombus. This could serve as a source of emboli to the left intracranial circulation. Degree of associated stenosis is less than 20%% by NASCET criteria. 2. Arch and cervical vessels are otherwise patent Leroy Cherry MD Head/Brain Mag Res Venography 05/31/17 0000 Signed Impressions: Service Date/Time: May 18:47 - CONCLUSION: MRV of the brain within normal limits. Toño Hand MD Head CTA 05/31/17 0000 Signed Impressions: Service Date/Time: May 15:18 - CONCLUSION: 1. Negative examination. Samuel Lovell MD Head CT 05/31/17 0000 Signed Impressions: Service Date/Time: May 14:57 - CONCLUSION: Negative exam. Leroy Cherry MD Brain MRI 05/31/17 0000 Signed Impressions: Service Date/Time: May 18:47 - CONCLUSION: Normal MRI of the brain. Toño Hand MD Objective Remarks GENERAL: NAD SKIN: Warm and dry. HEAD: Normocephalic. EYES: No scleral icterus. No injection or drainage. NECK: Supple, trachea midline. No JVD or lymphadenopathy. CARDIOVASCULAR: Regular rate and rhythm without murmurs, gallops, or rubs. RESPIRATORY: Breath sounds equal bilaterally. No accessory muscle use. GASTROINTESTINAL: Abdomen soft, non-tender, nondistended. MUSCULOSKELETAL: No cyanosis, or edema. BACK: Nontender without obvious deformity. No CVA tenderness. A/P Problem List: (1) Migraine ICD Code: G43.909 - Migraine, unspecified, not intractable, without status migrainosus (2) PFO (patent foramen ovale) ICD Code: Q21.1 - Atrial septal defect (3) Chest pain ICD Code: R07.9 - Chest pain, unspecified Assessment and Plan 42-year-old female with Expressive aphasia-resolved CVA/TIA ruled out [place] to be secondary to migraine Patient with history of factor V Leiden deficiency Neck MRA -awaiting interpretation from vascular surgery Continue with heparin drip, aspirin Seizure? Currently on Keppra Appreciate input from neurology Migraine headache On Topamax and Calan; eventually will discontinue Keppra PFO on COMFORT ASA 81mg daily Appreciate input from cardiology Chest pain very atypical-resolved Will follow up for consideration of stress testing per cardiology Carotid ulcerative plaque with possible thrombus Vascular surgery input appreciated Neck MRA -awaiting interpretation from vascular surgery Charles Woodard MD Jun 03, 2017 10:41
--- NOTE | 2017-06-03 11:33 | HHI.PR ---
Review/Management Daily Summary 06/03 ???word findingdx per last evening normal exam this am data seen keep heparin till dr Degroot reviews data tomorrow, guy pfo present, probably antiplatelet tx emt intermediate Subjective Subjective Comments ?some word finding difficulty residual last evening Active Medications Current Medications Medications (Trade) Dose Ordered Sig/Rosalino Route Start Time Stop Time Status Last Admin Heparin Sodium/ Dextrose 250 ml @ 6.54 mls/hr TITRATE PRN IV 05/31/17 16:30 05/31/17 16:31 (NS Flush) 2 ml BID IV FLUSH 05/31/17 21:00 06/03/17 09:00 (NS Flush) 2 ml UNSCH PRN IV FLUSH 05/31/17 16:45 (Vasotec Inj) 1.25 mg Q4H PRN IV 05/31/17 16:45 (NovoLOG SUPPLEMENTAL SCALE) 1 ACHS SQ 05/31/17 17:00 (D50w (Vial) Inj) 50 ml UNSCH PRN IV PUSH 05/31/17 16:45 (Glucagon Inj) 1 mg UNSCH PRN OTHER 05/31/17 16:45 Sodium Chloride 1,000 ml @ 75 mls/hr [id number] IV 05/31/17 17:46 06/02/17 08:03 (Ecotrin Ec) 325 mg DAILY PO 06/01/17 09:00 06/03/17 09:12 (Benadryl Inj) 25 mg Q4H PRN IV PUSH 05/31/17 19:15 06/02/17 22:22 (Compazine Inj) 10 mg Q4H PRN IV PUSH 05/31/17 19:15 06/02/17 22:22 (Isoptin Sr) 120 mg DAILY@2000 PO 06/01/17 20:00 06/02/17 21:11 (Keppra) 500 mg Q12HR PO 06/01/17 09:00 06/03/17 09:12 (Topamax) 25 mg DAILY@2100 PO 06/01/17 21:00 06/02/17 21:11 Allergies Allergies Coded Allergies No Known Allergies (Verified05/31/17) Exam I&O / VS Vital Signs Date Time Temp Pulse Resp B/P (MAP) Pulse Ox O2 Delivery O2 Flow Rate FiO2 06/03/17 08:00 97.7 76 18 98/56 (70) 100 06/03/17 04:00 98.5 64 17 110/65 (80) 100 06/03/17 03:56 90 06/03/17 00:00 98.9 68 17 115/64 (81) 99 06/02/17 20:00 98.5 87 18 110/59 (76) 100 06/02/17 12:00 98.5 94 18 96/53 (67) 94 Objective Radiology Results Last 48 hours Impressions Neck Magnetic Resonance Angiography 06/02/17 0000 Signed Impressions: Service Date/Time: Friday, June 02, 2017 14:32 - CONCLUSION: Irregular ulcerative plaquing again noted in the non-ostial proximal left internal carotid artery with less than 50%% diameter stenosis. There was less than 20%% stenosis by CT. Elbert Escudero MD Laboratory Tests Test 05/31/17 15:00 05/31/17 17:00 06/01/17 03:37 06/01/17 09:45 Monocytes (%) (Auto) 8.9 % (0.0-8.0) Fibrinogen 200 mg/dL (227-377) Random Glucose 122 MG/DL (74-106) Estimat Glomerular Filtration Rate 83 ML/MIN (>89) Troponin I LESS THAN 0.02 NG/ML Urine Occult Blood TRACE (NEG) Activated Partial Thromboplast Time 43.7 SEC (24.3-30.1) 47.5 SEC (24.3-30.1) HDL Cholesterol 73.1 MG/DL (40.0-60.0) Folate GREATER THAN 20.0 NG/ML Test 06/02/17 07:57 06/02/17 16:53 06/03/17 00:23 Activated Partial Thromboplast Time 51.9 SEC (24.3-30.1) 56.1 SEC (24.3-30.1) Micro and Labs Laboratory Tests Test 06/02/17 16:53 06/03/17 00:23 Activated Partial Thromboplast Time 51.9 56.1 Nae Hunter MD Jun 03, 2017 11:33
[2017-06-03] MEDS: SODIUM CHLOR 0.9% 1000 ML INJ 1,000 ML IV SCH (12:26)
[2017-06-03] MEDS: PROCHLORPERAZINE INJ 10 MG/2 ML VIAL IV PUSH PRN ×2 (13:25→23:13)
[2017-06-03 15:40] LABS: HEMATOCRIT 38.4 % (35.0-46.0); MEAN CELL VOLUME 85.8 FL (80.0-100.0); MEAN CORPUSCULAR HEMOGLOBIN 28.6 PG (27.0-34.0); MEAN CORPUSCULAR HGB CONC 33.4 % (32.0-36.0); PLATELET COUNT 211 TH/MM3 (150-450); RED BLOOD COUNT 4.48 MIL/MM3 (4.00-5.30); RED CELL DISTRIBUTION WIDTH 13.8 % (11.6-17.2); REVIEW FLAG FINAL
[2017-06-03 15:57] LABS: APTT (PATIENT) 61.3 SEC (24.3-30.1)
[2017-06-03] MEDS: VERAPAMIL HCL 120 MG SUSTAINED RELEASE TAB PO SCH (23:13)
[2017-06-03] MEDS: TOPIRAMATE 25 MG TAB PO SCH (23:13)
[2017-06-03] MEDS: diphenhydrAMINE HCL 50 MG/ML VIAL IV PUSH PRN (23:13)
[2017-06-04] VITALS: BP 129/75; PULSE 66; RESP 18; TEMP 98.4; O2SAT 99
[2017-06-04] MEDS: SODIUM CHLOR 0.9% 1000 ML INJ 1,000 ML IV SCH (01:46)
[2017-06-04 05:30] VITALS: BP 130/76; PULSE 80; RESP 20; TEMP 97.3; O2SAT 98
[2017-06-04] MEDS: INSULIN ASPART SUPPLEMENTAL SCALE SQ SCH ×3 (08:00→17:00)
--- NOTE | 2017-06-04 08:00 | HHI.PR ---
Subjective Remarks sr Objective Vital Signs Date Time Temp Pulse Resp B/P (MAP) Pulse Ox O2 Delivery O2 Flow Rate FiO2 06/04/17 05:30 97.3 80 20 130/76 (94) 98 06/04/17 00:00 98.4 66 18 129/75 (93) 99 06/03/17 22:00 98.8 80 17 135/76 (95) 98 06/03/17 16:00 96.7 71 16 95/52 (66) 100 06/03/17 12:00 98.9 76 17 91/50 (64) 100 06/03/17 08:00 97.7 76 18 98/56 (70) 100 I/O 06/03/17 06/03/17 06/03/17 06/04/17 06/04/17 06/04/17 07:00 15:00 23:00 07:00 15:00 23:00 Intake Total 1200 ml 950 ml 1000 ml Balance 1200 ml 950 ml 1000 ml Intake Oral 1200 ml 950 ml 1000 ml # Voids 3 1 3 # Bowel Movements 0 0 0 Result Diagram: 06/03/17 1445 05/31/17 1500 Objective Remarks awake nl speech now nl calc name doing well back to nl still had few word finding prob sat not yest Assessment and Plan Assessment and Plan imp eeg showed some sharply contoured left temp slowing will repeat and hold keppra no spikes mri neg cta negx2 cards showed pfo with shunt this was likely complicated migraine and eeg changes could be due to that vs cpsz? will add topamax and calan for migraines the left ica very irregular will have vasc surgery weigh in mra did not show dissection us next week in vasular office to look at plaque morphology asa 325 for now and top and calan has had a few mcneil inc top dose calan should keep hr down a little if eeg and mri repeat today neg dc later today Neo Eric MD Jun 04, 2017 07:59
[2017-06-04 08:12] VITALS: BP 98/56; PULSE 78; RESP 18; TEMP 97.8; O2SAT 98
[2017-06-04] MEDS: SODIUM CHLORIDE 0.9% FLUSH 5 ML FLUSH IV FLUSH SCH (09:00)
[2017-06-04 09:51] LABS: THROMBIN TIME FOR LA ND sec (13-19)
[2017-06-04] MEDS: ASPIRIN EC 325 MG TABEC PO SCH (10:24)
[2017-06-04 12:14] VITALS: BP 95/54; PULSE 76; RESP 18; TEMP 98.2; O2SAT 100
--- NOTE | 2017-06-04 12:14 | MB ---
cc: STACY LEES DATE OF CONSULTATION: 05/31/2017 HISTORY OF PRESENT ILLNESS A 42-year-old left-handed woman with some SVT. She has factor V Leiden in the past and history of migraine headaches. She has a severe headache about once a month and then maybe a lesser headache once a week. She was [place] [address] Castellon, had trouble reading, numbness in her right hand, unable to get any words out, speech and repetition were normal at that time. MRI was normal. CTA of the head was negative. Had resolved fully. She then had a carotid ultrasound that was negative. She had a workup or at least an evaluation up at [facility]. They thought maybe she had a complicated migraine. She was on some blood thinner for a while, but she does not know which one. Nevertheless, today this morning she had a headache, took some Goody's powder and then around noon had some change in her vision, possibly some scintillations or difficulty seeing a little bit and then about 1:00 p.m. her hand became a little bit numb or tingly. Then about two p.m. the workers noted she was not talking properly and came in as a stroke alert. She may have gotten a little bit better here as far as her speech. REVIEW OF SYSTEMS No history of hypertension, diabetes, hypercholesterolemia, CO coronary artery bypass graft, cardiac arrhythmia besides some SVT, A. fib, renal, hepatic or pulmonary disease, thyroid disease, lupus, ulcer, cancer, known seizure or stroke. SOCIAL HISTORY Not a smoker or drinker. No drugs. Lives with her who is a police specialist. FAMILY HISTORY Positive for cancer, positive for two seizures in her daughter, negative for stroke. Negative for blood clots or miscarriages as far as I can tell. PHYSICAL EXAMINATION VITAL SIGNS: Sinus rhythm here, 89, 21, 41/77. NECK: There were no carotid bruits. HEART: Regular rhythm. I did not detect a murmur. Pupils are equal. It is hard to tell her visual almodovar. She may have a little bit of right neglect as she has somewhat of an aphasia so it is hard to say but appears to have full almodovar. Face is symmetric with normal sensation. Tongue was midline. There is a slight right drift. She had normal strength, however, in upper and lower extremities bilaterally. DTRs are to 2-3+ symmetric throughout. Toes are downgoing bilaterally. There is no ankle clonus. Pinprick may be slightly decreased in the right leg compared to the left, was symmetric in the hands. She is not ataxic. She can repeat. She has difficulty with naming, some difficulty with comprehension. It is hard to tell if she could have a little bit of visual field cut, although she could tell both hands are moving. She cannot count fingers as well on the right as on the left. She can repeat but her naming is off. She has some developed difficulty with cognition for sure. LABORATORY DATA CBC is normal. She had a normal sed rate back in 2005. Coags showed anticardiolipin antibody IgM was only 13, slightly elevated last time. Factor VIII was normal. Negative for lupus anticoagulant, anticardiolipin antibody IgA negative, serine normal. Prothrombin gene not detected. Protein C and S were normal, homocysteine was normal. RPR negative. CHEL negative. It looks like she had an LP in 2005 and in [address] of the brain today negative. CTA of the head stenosis is seen by Dr. Cherry. CT of the brain negative. CTA of the neck - He does not pink it is a dissection. He thinks it is more of a 20% plaque, but ulcerated. IMPRESSION Complicated migraine versus stroke. I did talk with the and also the patient about possibly giving t-PA. We are trying to decide now whether to. It has been now almost four hours 15 minutes so since her vision changes started, only two hours since the speech. She still could get IV TPA and considering the extent of her deficit and possibly an ulcerated plaque on the left carotid, I am leaning a bit towards giving it. She is trying to make a decision on it now, although the onset could still be a complicated migraine, atypical seizures could also be considered. I did talk with . He feels that the patient does not want t-PA so instead we will give her a stat 325 aspirin and some IV heparin. MD EARLINE Bruno/ /3:51 PM /11:44 AM
[2017-06-04] MEDS: PROCHLORPERAZINE INJ 10 MG/2 ML VIAL IV PUSH PRN (12:33)
--- NOTE | 2017-06-04 13:13 | HHI.PR ---
Subjective Remarks Follow-up TIA? Migraine 06/02/17-patient seen and examined and continued to have migraine headaches. Patient reports improvement of slurred speech. Case discussed with patient's and mother had a bedside. Case was discussed with vascular surgery 06/03/17-patient seen and examined, denies any headache this morning. Reportedly that overnight she had difficulty with worlds finding which was witnessed by her however resolved this morning 06/04/17-patient seen and examined, continue to complaints of headaches. Denies anymore work finding difficulty. Brain MRI performed this a.m. pending EEG Objective Vitals Vital Signs Date Time Temp Pulse Resp B/P (MAP) Pulse Ox O2 Delivery O2 Flow Rate FiO2 06/04/17 12:14 98.2 76 18 95/54 (68) 100 06/04/17 08:12 97.8 78 18 98/56 (70) 98 06/04/17 05:30 97.3 80 20 130/76 (94) 98 06/04/17 00:00 98.4 66 18 129/75 (93) 99 06/03/17 22:00 98.8 80 17 135/76 (95) 98 06/03/17 16:00 96.7 71 16 95/52 (66) 100 I/O 06/03/17 06/03/17 06/03/17 06/04/17 06/04/17 06/04/17 07:00 15:00 23:00 07:00 15:00 23:00 Intake Total 1200 ml 950 ml 1000 ml Balance 1200 ml 950 ml 1000 ml Intake Oral 1200 ml 950 ml 1000 ml # Voids 3 1 3 # Bowel Movements 0 0 0 Result Diagram: 06/03/17 1445 05/31/17 1500 Imaging Last Impressions Neck Magnetic Resonance Angiography 06/02/17 0000 Signed Impressions: Service Date/Time: Friday, June 02, 2017 14:32 - CONCLUSION: Irregular ulcerative plaquing again noted in the non-ostial proximal left internal carotid artery with less than 50%% diameter stenosis. There was less than 20%% stenosis by CT. Elbert Escudero MD Neck CTA 05/31/17 0000 Signed Impressions: Service Date/Time: May 15:18 - CONCLUSION: 1. Ulcerated plaque in the nonostial proximal left internal carotid artery with mural thrombus. This could serve as a source of emboli to the left intracranial circulation. Degree of associated stenosis is less than 20%% by NASCET criteria. 2. Arch and cervical vessels are otherwise patent Leroy Cherry MD Head/Brain Mag Res Venography 05/31/17 0000 Signed Impressions: Service Date/Time: May 18:47 - CONCLUSION: MRV of the brain within normal limits. Toño Hand MD Head CTA 05/31/17 0000 Signed Impressions: Service Date/Time: , May 31, 2017 15:18 - CONCLUSION: 1. Negative examination. Samuel Lovell MD Head CT 05/31/17 0000 Signed Impressions: Service Date/Time: May 14:57 - CONCLUSION: Negative exam. Leroy Cherry MD Brain MRI 05/31/17 0000 Signed Impressions: Service Date/Time: May 18:47 - CONCLUSION: Normal MRI of the brain. Toño Hand MD Objective Remarks GENERAL: NAD SKIN: Warm and dry. HEAD: Normocephalic. EYES: No scleral icterus. No injection or drainage. NECK: Supple, trachea midline. No JVD or lymphadenopathy. CARDIOVASCULAR: Regular rate and rhythm without murmurs, gallops, or rubs. RESPIRATORY: Breath sounds equal bilaterally. No accessory muscle use. GASTROINTESTINAL: Abdomen soft, non-tender, nondistended. MUSCULOSKELETAL: No cyanosis, or edema. BACK: Nontender without obvious deformity. No CVA tenderness. Procedures None A/P Problem List: (1) Migraine ICD Code: G43.909 - Migraine, unspecified, not intractable, without status migrainosus (2) PFO (patent foramen ovale) ICD Code: Q21.1 - Atrial septal defect (3) Chest pain ICD Code: R07.9 - Chest pain, unspecified Assessment and Plan 42-year-old female with Expressive aphasia-resolved CVA/TIA ruled out [place] to be secondary to migraine Patient with history of factor V Leiden deficiency Neck MRA noted, Continue with aspirin 325 mg daily. Heparin drip discontinued Brain MRI report pending Seizure? Keppra discontinued Repeat EEG today 06/04/17 Appreciate input from neurology Migraine headache On Topamax and Calan PFO on COMFORT ASA 325 mg daily Appreciate input from cardiology Chest pain very atypical-resolved Will follow up for consideration of stress testing per cardiology Carotid ulcerative plaque with possible thrombus Vascular surgery input appreciated Neck MRA performed 06/03/17 Outpatient carotid ultrasound Charles Woodard MD Jun 04, 2017 13:13
[2017-06-04] MEDS ORDERED: TOPA25TA8 PO (13:19)
[2017-06-04] MEDS ORDERED: ASPI325T33 PO (13:19)
[2017-06-04] MEDS ORDERED: VERA1TAB9 PO (13:19)
--- NOTE | 2017-06-04 14:22 | RADRPT ---
EXAM DATE/TIME: 06/04/2017 09:56 [place] COMPARISON: No previous studies available for comparison. INDICATIONS : Right sided weakness with dysphasia since resolved. MEDICAL HISTORY : Factor 5. SURGICAL HISTORY : Hernia. Facial surgery. ENCOUNTER: Initial ACUITY: 4-6 days PAIN SCORE: 0/10 LOCATION: head TECHNIQUE: Multiplanar, multisequence MRI of the brain was performed without contrast. FINDINGS: CEREBRUM: The ventricles are normal for age. No evidence of midline shift, mass lesion, hemorrhage or acute in farction. No extraaxial fluid collections are seen. The pituitary gland and suprasellar cistern are normal in configuration. WHITE MATTER: No significant signal abnormalities are seen in the white matter. POSTERIOR FOSSA: The cerebellum and brainstem are intact. The 4th ventricle is midline. The cerebellopontine angle is unremarkable. The cerebellar tonsils are normal in position. DIFFUSION IMAGING: No focal areas of restricted diffusion are seen. No evidence of acute infarction. EXTRACRANIAL: The visualized portions of the orbits and paranasal sinuses are unremarkable. CONCLUSION: 1. No evidence of acute intracranial pathology. No masses are identified. Neo Gonzalez MD on June 04, 2017 at 14:20 Board Certified Radiologist. This report was verified electronically.
[2017-06-04] MEDS ORDERED: HEPARIN-D5W 25,000 U/250 ML 250 ML IV SCH (15:45)
[2017-06-04 15:54] VITALS: BP 105/63; PULSE 80; RESP 18; TEMP 98; O2SAT 100
[2017-06-04] MEDS ORDERED: WARFARIN SOD 5 MG TAB PO SCH (16:00)
[2017-06-04] MEDS ORDERED: WARFARIN SOD 2.5 MG TAB PO ONE (17:15)
[2017-06-04] MEDS ORDERED: ENOX40P SQ (17:23)
[2017-06-04] MEDS ORDERED: COUM5TAB PO (17:23)
--- NOTE | 2017-06-04 17:26 | HHI.DS ---
Discharge Summary Admission Date May 31, 2017 at 16:36 Discharge Date: Jun 04, 2017 Admitting Diagnosis aphasia (1) Migraine ICD Code: G43.909 - Migraine, unspecified, not intractable, without status migrainosus (2) PFO (patent foramen ovale) ICD Code: Q21.1 - Atrial septal defect (3) Chest pain ICD Code: R07.9 - Chest pain, unspecified Procedures None Brief History - From Admission 42-year-old female with PMH of TIA, migraine, Factor V Leyden deficiency, SVT, HLD, HTN, who presented to the emergency Department with strokelike symptoms. The patient reportedly at noon had onset of some flashes in her vision and then started to have some numbness in her right arm at noon yesterday. She mentioned it to her coworkers but continue to work. At 2 PM yesterday she started to have difficulty with her speech so the office called her and she was brought to the emergency department. Reportedly this happen once 10 years ago. Patient presented to an outside hospital and was told that she had a TIA. She followed up with the subspecialist to suspected her symptoms were related to complex migraine. She was diagnosed with factor V Leiden at that time and started on a blood thinner which she no longer currently takes. Stroke alert was activated when the patient arrived. Given patient's history of having had these symptoms in the past and they resolve spontaneously on their own and the risk of intracranial hemorrhage, the family decided against TPA. Neurology consulted. CTA/MRI neg for stroke, EEG poss seizure. Started meds for seizures and migraine. CBC/BMP: 06/03/17 1445 05/31/17 1500 Significant Findings Laboratory Tests Test 06/02/17 07:57 06/02/17 16:53 06/03/17 00:23 06/03/17 14:45 Activated Partial Thromboplast Time 51.9 SEC (24.3-30.1) 56.1 SEC (24.3-30.1) 61.3 SEC (24.3-30.1) Test 06/04/17 13:25 Imaging Last Impressions Brain MRI 06/04/17 Signed Impressions: Service Date/Time: Sunday, June 04, 2017 09:56 - CONCLUSION: 1. No evidence of acute intracranial pathology. No masses are identified. Neo Gonzalez MD Neck Magnetic Resonance Angiography 06/02/17 Signed Impressions: Service Date/Time: Friday, June 02, 2017 14:32 - CONCLUSION: Irregular ulcerative plaquing again noted in the non-ostial proximal left internal carotid artery with less than 50%% diameter stenosis. There was less than 20%% stenosis by CT. Elbert Escudero MD ADDENDUM: In reviewing the MR angiogram and CT angiogram of the carotid arteries the finding could represent a small focal intimal dissection. Elbert Escudero MD Neck CTA 05/31/17 Signed Impressions: Service Date/Time: May 15:18 - CONCLUSION: 1. Ulcerated plaque in the nonostial proximal left internal carotid artery with mural thrombus. This could serve as a source of emboli to the left intracranial circulation. Degree of associated stenosis is less than 20%% by NASCET criteria. 2. Arch and cervical vessels are otherwise patent Leroy Cherry MD Head/Brain Mag Res Venography 05/31/17 Signed Impressions: Service Date/Time: May 18:47 - CONCLUSION: MRV of the brain within normal limits. Toño Hand MD Head CTA 05/31/17 Signed Impressions: Service Date/Time: May 15:18 - CONCLUSION: 1. Negative examination. Samuel Lovell MD Head CT 05/31/17 Signed Impressions: Service Date/Time: May 14:57 - CONCLUSION: Negative exam. Leroy Cherry MD PE at Discharge GENERAL: NAD SKIN: Warm and dry. HEAD: Normocephalic. EYES: No scleral icterus. No injection or drainage. NECK: Supple, trachea midline. No JVD or lymphadenopathy. CARDIOVASCULAR: Regular rate and rhythm without murmurs, gallops, or rubs. RESPIRATORY: Breath sounds equal bilaterally. No accessory muscle use. GASTROINTESTINAL: Abdomen soft, non-tender, nondistended. MUSCULOSKELETAL: No cyanosis, or edema. BACK: Nontender without obvious deformity. No CVA tenderness. Hospital Course Expressive aphasia-resolved CVA/TIA ruled out [place] to be secondary to migraine Patient with history of factor V Leiden deficiency Neck MRA noted, She was treated with aspirin 325 mg daily. Heparin drip discontinued Seizure? Nick discontinued Repeat EEG 06/04/17 Appreciate input from neurology Migraine headache She was treated with Topamax and Calan PFO on COMFORT ASA 325 mg daily Appreciate input from cardiology Chest pain very atypical-resolved Will follow up for consideration of stress testing per cardiology Carotid ulcerative plaque with possible thrombus Vascular surgery input appreciated Neck MRA performed 06/03/17 Outpatient carotid ultrasound Prior to discharge, she was started on Coumadin by neurology Pt Condition on Discharge: Stable Discharge Disposition: Discharge Home Discharge Time: <= 30 minutes Discharge Instructions DIET: Follow Instructions for: Heart Healthy Diet Activities you can perform: Regular-No Restrictions Follow up Referrals: Cardiology Neurology PCP Follow-up - 1 Week Vascular Surgery New Orders: PT/INR - As Per Protocol New Medications: Enoxaparin Inj (Lovenox Inj) 40 Mg/0.4 Ml Syr 40 MG SQ BID for Blood Clot Prevention, #14 SYRINGE 0 Refills Warfarin (Coumadin) 5 Mg Tab 5 MG PO DAILY for Blood Clot Prevention, #30 TAB [address] (Aspirin EC) 325 Mg Tabdr 325 MG PO DAILY for Prevent Blood Clot, #30 TAB 3 Refills Topiramate (Topamax) 25 Mg Tab 50 MG PO DAILY@2100 for Headaches, #30 TAB 3 Refills Verapamil ER (Verapamil ER) 120 Mg Tab 120 MG PO DAILY@2000 for Headaches, #30 TAB 3 Refills Continued Medications: Atenolol (Atenolol) 25 Mg Tab 25 MG PO DAILY for Blood Pressure Management, #30 TAB Eletriptan (Relpax) 40 Mg Tab 40 MG PO ONCE PRN for MIGRAINE HEADACHE, #6 TAB 0 Refills Escitalopram (Escitalopram) 10 Mg Tab 10 MG PO DAILY, #30 TAB 0 Refills Discontinued Medications: Amitriptyline (Amitriptyline) 10 Mg Tab 10 MG PO HS, TAB Charles Woodard MD Jun 04, 2017 17:26
[2017-06-04] MEDS ORDERED: TOPIRAMATE 25 MG TAB PO SCH (21:00)
--- NOTE | 2017-06-04 22:10 | MG ---
cc: STACY LEES Lab No: Date: 06/04/2017 Age: Sex: F Race: ELECTROENCEPHALOGRAM NUMBER [id number] INTRODUCTION A 42-year-old woman migraine, TIA, difficulty with speech, left-sided slowing prior. DESCRIPTION The recording shows a symmetric 10 Hz 60 microvolt posterior rhythm which is synchronous and symmetric. There is still some left temporal theta slowing such as epoch 25 a definite asymmetry is noted. Photic stimulation was performed without significant posterior driving. At times the changes in the left temporal lobe are sharply contoured. At times sharply contoured theta wave is noted over the left mid and posterior temporal head region. No spikes are seen. Hyperventilation was performed without major change in the background. Then falls asleep with some diffuse 6 Hz slowing and a vertex sharp wave is noted. IMPRESSION Still some left temporal slowing noted, occasionally sharply contoured. No ongoing seizure activity is noted nor any spikes. Clinical correlation is needed. MD EARLINE Bruno/MITESH /8:50 PM /10:04 PM
[2017-06-05] MEDS ORDERED: WARFARIN SOD 5 MG TAB PO SCH (09:00)
--- NOTE | 2017-06-06 15:47 | HM ---
Date Performed: 06/04/2017 Time Performed: 13:25:00 HOOKUP DATE: 06/04/17 01:25:00 PM Mon ANALYSIS START TIME: 06/04/2017 1:30:00 PM ANALYSIS END TIME: 06/05/2017 1:29:13 PM PATIENT AGE: 42 PATIENT HEIGHT PATIENT WEIGHT DRUG LIST PATIENT DIAGNOSIS: NEURO SYMPTOMS TEST NARRATIVE: The patient's average heart rate was 76 BPM. Heart rates greater than 120 B PM were noted < 1% of the time. No episodes of bradycardia were noted. No pauses exceeding 2.0 s econds were noted. 2 ventricular ectopics, which represented < 1% of the total beat count, were n oted. The highest ventricular ectopic frequency occurred from 11:00 AM to 12:00 PM Tue. During this time 2 VE(s) occurred. Ventricular ectopics were observed as 2 isolated beat(s) only. No couplets or runs were noted. No supraventricular ectopics were noted. No episodes of ST depression (de fined as -1.0 mm or more) were noted in channel 1. No episodes of ST depression (defined as -1.0 mm or more) were noted in channel 2. No episodes of ST depression (defined as -1.0 mm or more) were not ed in channel 3. NO DIARY ENTRIES TEST INTERPRETATION: Sinus rhythm Sinus tachycardia Rare PVCs Colette d by : Annie Silver
== END 2017-06-04 18:01 | disposition home or self-care (01) | DRG 103 ==
LOC: PHED 14:47 → PHEDA 16:36 → N05B 22:27
PROVIDERS: ADMIT Hospitalist; ATTEND Hospitalist
DX: G43.909 Migraine, unspecified, not intractable, without status migrainosus (principal); D68.51 Activated protein C resistance; D68.2 Hereditary deficiency of other clotting factors; R56.9 Unspecified convulsions; Q21.1 Atrial septal defect; I47.1 Supraventricular tachycardia; I51.3 Intracardiac thrombosis, not elsewhere classified; R47.01 Aphasia; R07.89 Other chest pain; E78.5 Hyperlipidemia, unspecified; I10 Essential (primary) hypertension; F41.9 Anxiety disorder, unspecified; Z79.82 Long term (current) use of aspirin; Z86.73 Personal history of transient ischemic attack (TIA), and cerebral infarction without residual deficits
CPT/HCPCS: 70450; 70496; 70498; 70546; 70548; 70551; 70553; 80048; 80061; 80307; 81001; 81240; 81241; 82550; 82746; 82948; 83036; 84484; 84702; 85025; 85027; 85240; 85300; 85303; 85306; 85384; 85598; 85610; 85613; 85652; 85730; 86147; 86850; 86900; 86901; 93005; 93225; 93226; 93312; 93320; 93325; 95819; 96374; A9579; J0780; J1170; J1200; J1644; J1953; J2250; J2405; J7030; Q9967

== ENCOUNTER → 2017-06-05 | Outpatient (CLI) | payer OTHER ==
[~2017-06-05] MED LIST changes: +ASPI325T33 PO; +ATEN25TA PO; -BUTO10SO; +COUM5TAB PO; +ENOX40P SQ; +ESCI10TA PO; -OXYC-360 PO; +RELP40TA PO; -SUMA50; +TOPA25TA8 PO; +VERA1TAB9 PO
[2017-06-05 11:48] LABS: INTERNATIONAL NORMALIZED RATIO 1.1 RATIO; PROTHROMBIN TIME - PATIENT 11.7 SEC (9.8-11.6)
== END ==
LOC: PLAB 10:53
PROVIDERS: ATTEND Hospitalist
DX: I77.79 Dissection of other specified artery (principal)
CPT/HCPCS: 36415; 85610

== ENCOUNTER → 2017-06-06 | Outpatient (CLI) | payer OTHER ==
[2017-06-06 10:54] LABS: INTERNATIONAL NORMALIZED RATIO 1.3 RATIO; PROTHROMBIN TIME - PATIENT 14.1 SEC (9.8-11.6)
== END ==
LOC: PLAB 10:06
PROVIDERS: ATTEND Specialist
DX: D68.9 Coagulation defect, unspecified (principal)
CPT/HCPCS: 36415; 85610

== ENCOUNTER → 2017-06-07 | Outpatient (CLI) | payer OTHER ==
[2017-06-07 11:20] LABS: INTERNATIONAL NORMALIZED RATIO 1.7 RATIO; PROTHROMBIN TIME - PATIENT 19.2 SEC (9.8-11.6)
== END ==
LOC: PLAB 10:17
PROVIDERS: ATTEND Specialist
DX: D68.9 Coagulation defect, unspecified (principal)
CPT/HCPCS: 36415; 85610

== ENCOUNTER → 2017-06-08 | Outpatient (CLI) | payer OTHER ==
[2017-06-08 10:50] LABS: INTERNATIONAL NORMALIZED RATIO 2.2 RATIO; PROTHROMBIN TIME - PATIENT 25.7 SEC (9.8-11.6)
== END ==
LOC: PLAB 09:40
PROVIDERS: ATTEND Specialist
DX: D68.9 Coagulation defect, unspecified (principal)
CPT/HCPCS: 36415; 85610

== ENCOUNTER → 2017-06-09 | Outpatient (CLI) | payer OTHER ==
[2017-06-09 10:47] LABS: INTERNATIONAL NORMALIZED RATIO 2.2 RATIO; PROTHROMBIN TIME - PATIENT 25.6 SEC (9.8-11.6)
== END ==
LOC: HLAB 10:20
PROVIDERS: ATTEND Specialist
DX: D68.9 Coagulation defect, unspecified (principal)
CPT/HCPCS: 36415; 85610

== ENCOUNTER → 2017-06-10 | Outpatient (CLI) | payer OTHER ==
[2017-06-10 10:33] LABS: INTERNATIONAL NORMALIZED RATIO 2.9 RATIO
== END ==
LOC: HLAB 10:00
PROVIDERS: ATTEND Specialist
DX: D68.9 Coagulation defect, unspecified (principal)
CPT/HCPCS: 36415; 85610

== ENCOUNTER → 2017-06-11 | Outpatient (CLI) | payer OTHER ==
[2017-06-11 12:44] LABS: INTERNATIONAL NORMALIZED RATIO 1.5 RATIO; PROTHROMBIN TIME - PATIENT 17.4 SEC (9.8-11.6)
== END ==
LOC: PLAB 10:26
PROVIDERS: ATTEND Specialist
DX: D68.9 Coagulation defect, unspecified (principal)
CPT/HCPCS: 36415; 85610

== ENCOUNTER → 2017-06-12 | Outpatient (CLI) | payer OTHER ==
[2017-06-12 12:21] LABS: INTERNATIONAL NORMALIZED RATIO 1.4 RATIO; PROTHROMBIN TIME - PATIENT 15.5 SEC (9.8-11.6)
== END ==
LOC: PLAB 10:41
PROVIDERS: ATTEND Specialist
DX: D68.9 Coagulation defect, unspecified (principal)
CPT/HCPCS: 36415; 85610